=== PATIENT | female | born 1980 | race Hispanic/Latino ===

== ENCOUNTER 2019-06-16 20:47 | Inpatient (IN) | payer BC, SELFPAY ==
[2019-06-16] MEDS ORDERED: NA CHLORIDE 0.9% 100 ML IV ONE (21:16)
[2019-06-16] MEDS ORDERED: NA CHLORIDE 0.9% 2,000 ML ONE (21:16)
[2019-06-16] MEDS ORDERED: KETOROLAC 30 MG/ML INJ ONE (21:16)
[2019-06-16 21:28] LABS: Urine Blood 2+ (NEG); Urine Glucose 2+ (NEG); Urine Protein 3+ (NEG); Urine pH 5.5 (5.0-7.0)
[2019-06-16 21:42] LABS: Absolute Lymphocytes (CBC) 2.9 K/uL (0.7-4.9); Basophils % 0.8 % (0-1.3); Hematocrit 42.4 % (36.0-45.0); Lymphocytes % 18.7 % (15.3-44.8); MPV 9.6 fL (7.6-11.3); RBC Red Blood Cell Count 4.75 M/uL (3.86-4.86)
[2019-06-16] MEDS ORDERED: CEFTRIAXONE/SWI 1gm 1 GM/10 ML SYR ONE (22:15)
[2019-06-16 22:23] LABS: ALT/SGPT 28 U/L (12-78); AST/SGOT 14 U/L (15-37); Albumin 3.1 g/dL (3.4-5.0); Alkaline Phosphatase 105 U/L (45-117); BUN Blood Urea Nitrogen 9 mg/dL (7-18); Bicarbonate 21 mmol/L (21-32); Bilirubin Total 0.7 mg/dL (0.2-1.0); Glucose Level 282 mg/dL (74-106); Potassium 3.9 mmol/L (3.5-5.1); Protein, Total 7.5 g/dL (6.4-8.2); Sodium Level 139 mmol/L (136-145)
--- NOTE | 2019-06-17 00:08 | EDPHYS ---
Physician Documentation [facility] Name: Yael Lipscomb Age: 39 yrs Sex: Female : 1980 Arrival Date: 06/16/2019 Time: 20:49 Bed 5 Private MD: ED Physician Grabiel Santizo HPI: 06/16 21:05 This 39 yrs old Female presents to ER via Unassigned with complaints of ps1 Abdominal Pain. 21:05 Pt is IDDM, 70/30 poor control, BS >300. Chron's on Humira. Presenting with LLQ ps1 abdominal pain. States over last couple of days had lower abdominal pain L>R. Had urinary frequency with mild dysuria. Started taking amoxicillin (left over). No fever. Had chills. Presented tachycardic. Hx of BTL. . 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 - Social history:: Smoking status: Patient/guardian denies using tobacco, Patient/guardian denies using alcohol, street drugs. - Ebola Screening: : Patient negative for fever greater than or equal to 101.5 degrees Fahrenheit, and additional compatible Ebola Virus Disease symptoms Patient denies exposure to infectious person Patient denies travel to an Ebola-affected area in the 21 days before illness onset. ROS: 21:05 Eyes: Negative for injury, pain, redness, and discharge, ENT: Negative for injury, ps1 pain, and discharge, Cardiovascular: Negative for chest pain, palpitations, and edema, Respiratory: Negative for shortness of breath, cough, wheezing, and pleuritic chest pain, MS/Extremity: Negative for injury and deformity, Skin: Negative for injury, rash, and discoloration, Neuro: Negative for headache, weakness, numbness, tingling, and seizure. 21:05 Abdomen/GI: Positive for abdominal pain. Exam: 21:11 Constitutional: This is a well developed, well nourished patient who is awake, alert, ps1 and in no acute distress. Head/Face: Normocephalic, atraumatic. Eyes: Pupils equal round and reactive to light, extra-ocular motions intact. Lids and lashes normal. Conjunctiva and sclera are non-icteric and not injected. Chest/axilla: Normal chest wall appearance and motion. Nontender with no deformity. No lesions are appreciated. Respiratory: Lungs have equal breath sounds bilaterally, clear to auscultation and percussion. No rales, rhonchi or wheezes noted. No increased work of breathing, no retractions or nasal flaring. MS/ Extremity: Pulses equal, no cyanosis. Neurovascular intact. Full, normal range of motion. Neuro: Awake and alert, GCS 15, oriented to person, place, time, and situation. Cranial nerves II-XII grossly intact. Sensory grossly intact. Psych: Awake, alert, with orientation to person, place and time. Behavior, mood, and affect are within normal limits. 21:11 Cardiovascular: Rate: tachycardic, Rhythm: regular. 21:11 Abdomen/GI: Inspection: abdomen appears normal, Bowel sounds: normal, Palpation: moderate abdominal tenderness, in the suprapubic area and left lower quadrant. Vital Signs: 21:08 BP 178 / 99; Pulse 125; Resp 20; Temp 99; Pulse Ox 100% ; Weight 68.95 kg; Height 5 ft. rr5 1 in. (154.94 cm); Pain 10/10; 22:15 BP 165 / 72; Pulse 115; Resp 19; Pulse Ox 100% ; rr5 22:15 Pain 0/10; rr5 22:48 BP 154 / 73; Pulse 104; Resp 19; Pulse Ox 98% ; Pain 0/10; rr5 06/17 00:00 BP 146 / 85; Pulse 99; Resp 19; Pulse Ox 98% ; rr5 01:00 BP 143 / 81; Pulse 94; Resp 17; Temp 98.5; Pulse Ox 100% ; Pain 0/10; rr5 06/16 21:08 Body Mass Index 28.72 (68.95 kg, 154.94 cm) rr5 MDM: 06/16 22:01 Patient medically screened. [facility] 06/16 21:05 Order name: CBC with Diff; Complete Time: 22:02 ps1 06/16 21:05 Order name: CMP; Complete Time: 22:48 ps1 06/16 21:05 Order name: Lactate; Complete Time: 22:08 ps1 06/16 21:05 Order name: Blood Culture Adult (2) ps1 06/16 21:25 Order name: Urine Dipstick--Ancillary (enter results); Complete Time: 22:02 mw2 06/16 21:43 Order name: Urine Microscopic Only rr5 06/16 21:05 Order name: CT Abd/Pelvis - IV Contrast Only ps1 06/17 00:30 Order name: Comprehensive Metabolic Panel EDNM 06/17 00:30 Order name: Comprehensive Metabolic Panel EDNM 06/17 00:32 Order name: CONS Pharmacy Consult EDNM 06/17 00:32 Order name: Regular EDMS 06/16 21:05 Order name: Urine Dipstick-Ancillary (obtain specimen); Complete Time: 21:25 ps1 Administered Medications: 21:30 Drug: NS 0.9% (30 ml/kg) 30 ml/kg Route: IV; Rate: bolus; Site: right forearm; rr5 06/17 00:00 Follow up: Response: No adverse reaction; IV Status: Completed infusion; IV Intake: rr5 2100ml 06/16 21:31 Drug: TORadol - Ketorolac 15 mg Route: IVP; Site: right forearm; rr5 22:30 Follow up: Response: No adverse reaction rr5 22:28 Drug: Rocephin - (cefTRIAXone) 1 grams Route: IVPB; Infused Over: 30 mins; Site: right rr5 forearm; Disposition: 06/17/19 00:06 Hospitalization ordered by Rodney Read for Inpatient Admission. Preliminary diagnosis are Complicated UTI, Sepsis. - Bed requested for Telemetry/MedSurg (Inpatient). - Status is Inpatient Admission. rr5 - Condition is Stable. - Problem is new. - Symptoms have improved. UTI on Admission? Yes Signatures: Dispatcher [employer] EDNM Kathryn Luna RN RN aa1 Grabiel Santizo MD MD ps1 Yvan Moser RN RN rr5 Corrections: (The following items were deleted from the chart) 06/17 00:46 00:06 Hospitalization Ordered by Rodney Read MD for Inpatient Admission. Preliminary aa1 diagnosis is Complicated UTI; Sepsis. Bed requested for Telemetry/MedSurg (Inpatient). Status is Inpatient Admission. Condition is Stable. Problem is new. Symptoms have improved. UTI on Admission? Yes. ps1 01:35 00:46 06/17/2019 00:06 Hospitalization Ordered by Rodney Read MD for Inpatient rr5 Admission. Preliminary diagnosis is Complicated UTI; Sepsis. Bed requested for Telemetry/MedSurg (Inpatient). Status is Inpatient Admission. Condition is Stable. Problem is new. Symptoms have improved. UTI on Admission? Yes. aa1
--- NOTE | 2019-06-17 00:08 | ER ---
Nurse's Notes [facility] Name: Yael Lipscomb Age: 39 yrs Sex: Female : 1980 Arrival Date: 06/16/2019 Time: 20:49 Bed 5 Private MD: Diagnosis: Complicated UTI;Sepsis Presentation: 06/16 21:05 Presenting complaint: Patient states: i have this abdominal pain started few days ago rr5 more on the left pelvic area. I noticed also when i pee at the end it started to hurt. Transition of care: patient was not received from another setting of care. Onset of symptoms was May 2019. Risk Assessment: Do you want to hurt yourself or someone else? Patient reports no desire to harm self or others. Care prior to arrival: Medication(s) given: unprescribed amoxicillin taken yesterday I'm thinking it looks UTI as stated by the patient. 21:05 Method Of Arrival: Wheelchair rr5 21:05 Acuity: MATT 3 rr5 21:05 Initial Sepsis Screen: Does the patient meet any 2 criteria? RR > 20 per min. HR > 90 rr5 bpm. Yes Does the patient have a suspected source of infection? 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 - Social history:: Smoking status: Patient/guardian denies using tobacco, Patient/guardian denies using alcohol, street drugs. - Ebola Screening: : Patient negative for fever greater than or equal to 101.5 degrees Fahrenheit, and additional compatible Ebola Virus Disease symptoms Patient denies exposure to infectious person Patient denies travel to an Ebola-affected area in the 21 days before illness onset. Screenin:35 Abuse screen: Denies threats or abuse. Denies injuries from another. Nutritional rr5 screening: No deficits noted. Tuberculosis screening: No symptoms or risk factors identified. Fall Risk IV access (20 points). Total [place] Fall Scale indicates No Risk (0-24 pts). Assessment: 21:30 General: Appears in no apparent distress. uncomfortable, Behavior is calm, cooperative, rr5 appropriate for age. 21:30 Pain: Complains of pain in abdomen Pain radiates to left flank Pain currently is 10 out rr5 of 10 on a pain scale. Quality of pain is described as aching, Pain began gradually. Neuro: Level of Consciousness is awake, alert, obeys commands, Oriented to person, place, time, situation, Appropriate for age. Cardiovascular: Capillary refill < 3 seconds Patient's skin is warm and dry. Respiratory: Airway is patent Respiratory effort is even, unlabored, Respiratory pattern is regular, symmetrical. GI: Abdomen is round Bowel sounds present X 4 quads. Abd is soft and non tender Reports lower abdominal pain. : Reports pain with urination. EENT: No signs and/or symptoms were reported regarding the EENT system. Derm: Skin is intact, Skin temperature is warm. Musculoskeletal: Circulation, motion, and sensation intact. Capillary refill < 3 seconds. 22:26 Reassessment: Patient appears in no apparent distress at this time. Patient is alert, rr5 oriented x 3, equal unlabored respirations, skin warm/dry/pink. awaiting for results. Patient denies pain at this time. Patient states feeling better. Patient states symptoms have improved. Pain: Pain currently is 0 out of 10 on a pain scale. 23:30 Reassessment: Patient appears in no apparent distress at this time. Patient is alert, rr5 oriented x 3, equal unlabored respirations, skin warm/dry/pink. awaiting for CT result. 06/17 00:50 Reassessment: Patient appears in no apparent distress at this time. Patient is alert, rr5 oriented x 3, equal unlabored respirations, skin warm/dry/pink. advised and agreed for the plan of admission.denies any pain. no complaints made. Patient states feeling better. Patient states symptoms have improved. 01:15 Reassessment: Patient appears in no apparent distress at this time. Patient and/or rr5 family updated on plan of care and expected duration. Pain level reassessed. Patient is alert, oriented x 3, equal unlabored respirations, skin warm/dry/pink. 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 Vital Signs: 06/16 21:08 BP 178 / 99; Pulse 125; Resp 20; Temp 99; Pulse Ox 100% ; Weight 68.95 kg; Height 5 ft. rr5 1 in. (154.94 cm); Pain 10/10; 22:15 BP 165 / 72; Pulse 115; Resp 19; Pulse Ox 100% ; rr5 22:15 Pain 0/10; rr5 22:48 BP 154 / 73; Pulse 104; Resp 19; Pulse Ox 98% ; Pain 0/10; rr5 06/17 00:00 BP 146 / 85; Pulse 99; Resp 19; Pulse Ox 98% ; rr5 01:00 BP 143 / 81; Pulse 94; Resp 17; Temp 98.5; Pulse Ox 100% ; Pain 0/10; rr5 06/16 21:08 Body Mass Index 28.72 (68.95 kg, 154.94 cm) rr5 ED Course: 06/16 20:49 Patient arrived in ED. cf2 20:54 Yvan Moesr, SIMIN is Primary Nurse. rr5 20:56 Grabiel Santizo MD is Attending Physician. ps1 21:05 Arm band placed on left wrist. rr5 21:05 Patient has correct armband on for positive identification. Placed in gown. Bed in low rr5 position. Call light in reach. Side rails up X2. Pulse ox on. NIBP on. 21:08 Triage completed. rr5 21:10 Radiology exam delayed due to lab results not completed at this time. (BUN/Creatinine). mw3 21:30 Inserted saline lock: 20 gauge in right forearm, using aseptic technique. Blood rr5 collected. 21:30 First set of blood cultures drawn by me. rr5 21:55 Radiology exam delayed due to lab results not completed at this time. (BUN/Creatinine). kw1 22:37 CT completed. Patient tolerated procedure well. Patient moved back from CT. mw3 22:47 CT Abd/Pelvis - IV Contrast Only In Process Unspecified. EDMS 06/17 00:05 Grabiel Santizo MD is Hospitalizing Provider. ps1 00:05 Read, Mohammad, MD is Hospitalizing Provider. ps1 01:02 No provider procedures requiring assistance completed. Patient admitted, IV remains in rr5 place. intact, No redness/swelling at site. Administered Medications: 06/16 21:30 Drug: NS 0.9% (30 ml/kg) 30 ml/kg Route: IV; Rate: bolus; Site: right forearm; rr5 06/17 00:00 Follow up: Response: No adverse reaction; IV Status: Completed infusion; IV Intake: rr5 2100ml 06/16 21:31 Drug: TORadol - Ketorolac 15 mg Route: IVP; Site: right forearm; rr5 22:30 Follow up: Response: No adverse reaction rr5 22:28 Drug: Rocephin - (cefTRIAXone) 1 grams Route: IVPB; Infused Over: 30 mins; Site: right rr5 forearm; Intake: 06/17 00:00 IV: 2100ml; Total: 2100ml. rr5 Outcome: 00:06 Decision to Hospitalize by Provider. ps1 01:25 Admitted to Med/surg accompanied by nurse, via wheelchair, room 206, with chart, Report rr5 called to [facility] 01:25 Condition: stable rr5 01:25 Instructed on the need for admit. 01:35 Patient left the ED. rr5 Signatures: Dispatcher [employer] EDMS Grabiel Santizo MD MD ps1 Esperanza Singh kw1 Joslyn Mckeon mw3 Yvan Moser RN RN rr5 Kimberly Tovar cf2 Corrections: (The following items were deleted from the chart) 06/16 22: 21:30 Pain: Complains of pain in abdomen Pain does not radiate. Pain currently is 6 out rr5 of 10 on a pain scale. Quality of pain is described as aching, Pain began gradually, rr5 22:01 21:30 GI: Abdomen is round post incision at right upper,lower quadrant and umbilical rr5 area. wound is dry and intact no discharge noted. Bowel sounds present X 4 quads. Abd is soft and non tender rr5 22:02 21:30 Pain: Complains of pain in abdomen Pain does not radiate. Pain currently is 10 rr5 out of 10 on a pain scale. Quality of pain is described as aching, Pain began gradually, rr5 22:02 21:30 GI: Abdomen is round post incision at right upper,lower quadrant and umbilical rr5 area. wound is dry and intact no discharge noted. Bowel sounds present X 4 quads. Abd is soft and non tender Reports lower abdominal pain, rr5
[2019-06-17] MEDS ORDERED: ACETAMINOPHEN 500 MG TAB PO PRN (00:27)
[2019-06-17] MEDS ORDERED: TRAMADOL HCL 50 MG TAB PO PRN (00:30)
[2019-06-17] MEDS ORDERED: ONDANSETRON 4 MG/2 ML VIAL IV SCH (01:00)
[2019-06-17] MEDS ORDERED: ONDANSETRON 4 MG/2 ML VIAL IV PRN (01:39)
[2019-06-17] MEDS: NA CHLORIDE 0.9% 1,000 ML IV SCH ×3 (01:45→21:02)
[2019-06-17 02:59] VITALS: BMI 28.7
[2019-06-17] MEDS ORDERED: CEFTRIAXONE/SWI 1gm 1 GM/10 ML SYR ONE (04:48)
[2019-06-17 05:54] LABS: Urine Appearance CLOUDY; Urine Bilirubin NEGATIVE (NEG); Urine Blood 1+ (NEG); Urine Color YELLOW; Urine Glucose 3+ (NEG); Urine Protein 1+ (NEG); Urine Specific Gravity >=1.030 (1.005-1.030); Urine Urobilinogen 0.2 mg/dL (0.2-1.0)
[2019-06-17 05:57] LABS: Urine Microscopic Reflex ORDER UMIC
[2019-06-17] MEDS ORDERED: CEFTRIAXONE 1 GM/NS 50 ML 1 GM/50 ML BAG IV SCH (06:00)
[2019-06-17 06:08] LABS: Urine Bacteria <20 /HPF (<20); Urine Culture Reflex Order REFLEXED; Urine RBC <5 /HPF (NONE SEEN)
--- NOTE | 2019-06-17 08:06 | P.HP ---
Certification for Inpatient Patient admitted to: Inpatient With expected LOS: >2 Midnights Patient will require the following post-hospital care: None Practitioner: I am a practitioner with admitting privileges, knowledge of patient current condition, hospital course, and medical plan of care. Services: Services provided to patient in accordance with Admission requirements found in Title 42 Section 412.3 of the Code of Federal Regulations Patient History Date of Service: 06/17/19 Reason for admission: Pyelonephritis/ureteritis/cystitis History of Present Illness: Patient is a 39-year-old female who came into the hospital with fevers. Pt has been on immunosuppressants. She has history of Crohn's disease as well as type 2 diabetes. Patient has been having some abdominal pain. She denies any vaginal discharge. She has had dysuria. She came to the emergency room for evaluation. In the emergency room she was found have cystitis with possible pyelonephritis. She will be admitted to the hospital for further evaluation. She has infection with possible sepsis and a history of immunosuppression. She will need to be monitored closely. Allergies No Known Allergies Allergy (Verified 06/17/19 01:49) Home Medications: Adalimumab [Humira 40 MG/0.8 ML*] 0.8 ml IM SEECOM 06/17/19 Amlodipine [Norvasc*] 1 tab PO DAILY 06/17/19 Insulin 70/30 NPH/Reg Human [Novolin 70/30*] 20 units SQ BEDTIME 06/17/19 Insulin 70/30 NPH/Reg Human [Novolin 70/30*] 40 units SQ DAILY 06/17/19 Pioglitazone [Actos*] 1 tab PO BID 06/17/19 - Past Medical/Surgical History Has patient received pneumonia vaccine in the past: No Diabetic: Yes -: HYPERTENSION -: CROHN'S DISEASE -: IDDM -: INSOMNIA -: CHRONIC JOINT PAIN UPPER AND LOWER EXTREMITIES -: HIATAL HERNIA -: MOUTH ULCERS BECAUSE OF CROHN'S -: tubal ligation - Family History PARENTS Medical History: Hypertension, Diabetes - Social History Smoking Status: Never smoker Alcohol use: No CD- Drugs: Yes Caffeine use: Yes Place of Residence: Home Review of Systems 10-point ROS is otherwise unremarkable Physical Examination - Vital Signs Temperature: 98.3 F Blood Pressure: 126/60 Pulse: 93 Respirations: 15 Pulse Ox (%): 96 - Physical Exam General: Alert, In no apparent distress, Oriented x3 HEENT: Atraumatic, PERRLA, Mucous membr. moist/pink, EOMI, Sclerae nonicteric Neck: Supple, 2+ carotid pulse no bruit, No LAD, Without JVD or thyroid abnormality Respiratory: Clear to auscultation bilaterally, Normal air movement Cardiovascular: Regular rate/rhythm, Normal S1 S2, No murmurs Gastrointestinal: Normal bowel sounds, Non-distended, No rebound, No guarding, Tenderness Musculoskeletal: No clubbing, No swelling, No tenderness Integumentary: No rashes Neurological: Normal gait, Normal strength at 5/5 x4 extr, Normal tone, Sensation intact, Cranial nerves 3-12 intact, Abnormal gait, Abnormal speech, Abnormal strength Lymphatics: No axilla or inguinal lymphadenopathy - Studies Laboratory Data (last 24 hrs) 06/16/19 21:53: Sodium 139, Potassium 3.9, BUN 9, Creatinine 0.55, Glucose 282 H , Total Bilirubin 0.7, AST 14 L, ALT 28, Alkaline Phosphatase 105 06/16/19 21:30: WBC 15.7 H, Hgb 14.1, Hct 42.4, Plt Count 319 Assessment & Plan - Problems (Diagnosis) (1) Pyelonephritis Current Visit: Yes Status: Acute (2) Cystitis Current Visit: Yes Status: Acute (3) UTI (urinary tract infection) Current Visit: Yes Status: Acute (4) Immunosuppression Current Visit: Yes Status: Acute - Plan 1. Continue with IV hydration 2. Continue with IV antibiotics 3. Diet as tolerated; monitor labs closely 4. Monitor CBC, BMP, LFTs & lipase along with electrolytes. 5. GI and DVT prophylaxis Discharge Plan: Home Plan to discharge in: Greater than 2 days - Advance Directives Does patient have a Living Will: No Does patient have a Durable POA for Healthcare: No - Code Status/Comfort Care Code Status Assessed: Yes Code Status: Full Code Critical Care: No Time Spent Managing PTS Care (In Minutes): 40
[2019-06-17] MEDS: INSULIN 70/30 100 UNITS/ML SQ SCH (10:05)
[2019-06-17] MEDS: MORPHINE 2 MG/ML SYR IV PRN ×2 (10:20→17:39)
[2019-06-17 11:05] LABS: Absolute Lymphocytes (CBC) 3.4 K/uL (0.7-4.9); Basophils % 0.8 % (0-1.3); Hematocrit 34.8 % (36.0-45.0); Lymphocytes % 30.7 % (15.3-44.8); MPV 9.6 fL (7.6-11.3); RBC Red Blood Cell Count 3.93 M/uL (3.86-4.86)
[2019-06-17 11:20] LABS: BUN Blood Urea Nitrogen 9 mg/dL (7-18); Bicarbonate 25 mmol/L (21-32); Glucose Level 244 mg/dL (74-106); Phosphorus 2.3 mg/dL (2.5-4.9); Potassium 3.6 mmol/L (3.5-5.1); Sodium Level 139 mmol/L (136-145)
[2019-06-17] MEDS ORDERED: D50W 25 GM/50 ML SYRINGE IV PRN (13:47)
[2019-06-17] MEDS ORDERED: GLUCAGON 1 MG/VIAL IM PRN (13:47)
[2019-06-17] MEDS ORDERED: POTASSIUM CL SA 10 MEQ TAB PO ONE (14:36)
[2019-06-17] MEDS: POTASS/SODIUM PHOSPHATE 1 PKT POWD.PACK PO SCH ×3 (15:27→16:47)
[2019-06-17] MEDS: INSULIN -REGULAR HUMAN 50 UNIT/0.5 ML ML SQ SCH ×2 (16:47→21:03)
[2019-06-17] MEDS: CEFTRIAXONE/SWI 1gm 1 GM/10 ML SYR IV SCH (17:15)
--- NOTE | 2019-06-17 19:06 | PN ---
Date of Progress Note: 06/17/2019 Subjective: The patient seen and examined. Chart reviewed and case discussed with RN. Patient radha matias having some pain on her left flank and abdomen, however, overall states better. Medications: List reviewed. Physical Examination: Vital Signs: Temperature 98.4, heart rate 102, blood pressure 153/69, respirations 18, O2 sats 98% o n room air. General: Awake, alert, oriented x3. Mildly ill-appearing female. CV: S1, S2. Sinus tachycardia and peripheral pulses present. Respiratory: Moving air well bilaterally. No wheezing or stridor. No use of accessory muscles. Gastrointestinal: Abdomen is soft. Mild tenderness to palpation on the left side. No rebound or gu arding. The patient does have left flank tenderness. Extremities: No clubbing, cyanosis, or edema. Neurologic: Nonfocal. Laboratory Data: Sodium 139, potassium 3.6, chloride 107, CO2 of 25, BUN 9, creatinine 0.51, glucose 244, calcium 8.2, phosphorus 2.3, magnesium 2. WBC 11, H and H 11.7 and 34.8, platelets 293. Blood cultures pending. Urine culture is also pending. Assessment And Plan: A 39-year-old female with. 1.Acute pyelonephritis. We will continue with IV fluids. The patient is still having left flank te nderness. Continue with pain medications and IV antibiotics. Cultures are pending. 2.Immunosuppressed status secondary to being on biologics for her Crohn disease. 3.Essential hypertension, stable. 4.Diabetes mellitus type 2, insulin requiring, uncontrolled with hyperglycemia. We will start on sl iding scale insulin, continue 70/30. 5.Crohn disease, on Humira, stable. 6.Chronic joint pain. 7.Hypophosphatemia. We will replace and monitor. Plan: Follow up on urine cultures, likely discharge in the next 24 to 48 hours depending on clinical improvement, replace phosphorus, add sliding scale insulin. SA/MODL Voice ID: [id number] Report ID: [id number]
[2019-06-17 23:40] VITALS: O2SAT 95
[2019-06-18] MEDS: MORPHINE 2 MG/ML SYR IV PRN (03:09)
[2019-06-18] MEDS: CEFTRIAXONE/SWI 1gm 1 GM/10 ML SYR IV SCH (05:03)
[2019-06-18 06:05] LABS: Absolute Lymphocytes (CBC) 3.4 K/uL (0.7-4.9); Basophils % 0.9 % (0-1.3); Hematocrit 34.8 % (36.0-45.0); MPV 9.4 fL (7.6-11.3); RBC Red Blood Cell Count 3.95 M/uL (3.86-4.86)
[2019-06-18] MEDS: NA CHLORIDE 0.9% 1,000 ML IV SCH (06:26)
[2019-06-18 06:35] LABS: ALT/SGPT 23 U/L (12-78); AST/SGOT 15 U/L (15-37); Albumin 2.7 g/dL (3.4-5.0); Alkaline Phosphatase 96 U/L (45-117); BUN Blood Urea Nitrogen 7 mg/dL (7-18); Bicarbonate 26 mmol/L (21-32); Bilirubin Total 0.5 mg/dL (0.2-1.0); Glucose Level 169 mg/dL (74-106); Phosphorus 2.8 mg/dL (2.5-4.9); Potassium 3.7 mmol/L (3.5-5.1); Protein, Total 7.2 g/dL (6.4-8.2); Sodium Level 137 mmol/L (136-145)
[2019-06-18] MEDS: INSULIN -REGULAR HUMAN 50 UNIT/0.5 ML ML SQ SCH (08:15)
[2019-06-18] MEDS: INSULIN 70/30 100 UNITS/ML SQ SCH (08:16)
[2019-06-18] MEDS ORDERED: GLUCAGON 1 MG/VIAL IM PRN (08:21)
[2019-06-18] MEDS ORDERED: D50W 25 GM/50 ML SYRINGE IV PRN (08:21)
[2019-06-18] MEDS ORDERED: POTASSIUM CL SA 10 MEQ TAB PO ONE (09:00)
[2019-06-18] MEDS ORDERED: PIOGLITAZONE 15 MG TAB PO SCH (09:00)
[2019-06-18] MEDS ORDERED: AMLODIPINE 5 MG TAB PO SCH (09:00)
[2019-06-18 10:15] VITALS: BP 145/64; TEMP 97.5
[2019-06-18] MEDS ORDERED: INSULIN -REGULAR HUMAN 50 UNIT/0.5 ML ML SQ SCH (11:30)
--- NOTE | 2019-06-18 17:01 | RAD REPORT ---
EXAM DESCRIPTION: CT Abdomen and Pelvis With Intravenous Contrast CLINICAL HISTORY: The patient is 39 years old and is Female; LLQ abd pain. hx chrons TECHNIQUE: Axial computed tomography images of the abdomen and pelvis with intravenous contrast. S agittal and coronal reformatted images were created and reviewed. This CT exam was performed using one or more of the following dose reduction techniques: automated exposure control, adjustment of t he mA and/or kV according to patient size, and/or use of iterative reconstruction technique. COMPARISON: No relevant prior studies available. FINDINGS: LUNG BASES: Unremarkable. No mass. No consolidation. ABDOMEN: LIVER: There is a diffuse decrease in hepatic parenchymal density, consistent with fatty infiltr ation. GALLBLADDER AND BILE DUCTS: No calcified stones. No ductal dilation. PANCREAS: No ductal dilation. No mass. SPLEEN: Unremarkable. ADRENALS: Unremarkable. No mass. KIDNEYS AND URETERS: Extensive periureteral stranding on the left is present. The kidneys enhanc e symmetrically. No hydronephrosis or hydroureter is noted. STOMACH AND BOWEL: The stomach is minimally fluid filled. The small bowel is relatively normal i n caliber. Stool is present throughout colon. There is no mucosal thickening or evidence of bowel obs truction. PELVIS: APPENDIX: The appendix is normal in caliber without surrounding inflammation. BLADDER: Bladder wall inflammatory stranding is noted. REPRODUCTIVE: Unremarkable as visualized. ABDOMEN and PELVIS: INTRAPERITONEAL SPACE: Unremarkable. No free air. No significant fluid collection. BONES/JOINTS: No acute fracture. SOFT TISSUES: The soft tissues are normal. VASCULATURE: Unremarkable. No abdominal aortic aneurysm. LYMPH NODES: Unremarkable. No enlarged lymph nodes. IMPRESSION: Findings suggestive of extensive left ureteritis and cystitis. Electronically signed by: Bessie Singh MD 06/16/2019 10:58 PM CDT Due to temporary technical issues with the PACS/Fluency reporting system, reports are being signed by the in house radiologist as a courtesy to ensure prompt reporting. The interpreting radiologist is shy kwon responsible for the content of the report.
--- NOTE | 2019-06-19 02:27 | DS ---
Date of Discharge: 06/18/2019 Admitting Diagnoses: 1.Acute pyelonephritis. 2.Immunosuppressed status. 3.Ulcerative colitis. 4.Essential hypertension. 5.Diabetes mellitus type 2, insulin requiring with hyperglycemia. Discharge Diagnoses: 1.Acute pyelonephritis, improving. 2.Immunosuppressed status. 3.History of Crohn disease, on immunosuppressant. 4.Essential hypertension. 5.Diabetes mellitus type 2, insulin requiring with hyperglycemia, uncontrolled. Hospital Course: Patient is a 39-year-old female, comes in with fever, chills, and dysuria. Patient also had some flank tenderness on the left. UA was positive. Patient was found to have pyelonephri tis. CT scan of the abdomen showed inflammation and extensive left ureteritis and cystitis. Patient was started on IV antibiotics. Cultures were obtained. Her urine culture did not show any growth. Blood cultures remained negative to date. Her blood glucose levels were not well controlled. She w as counseled regarding her diabetes. Patient's white blood cell count trended down and resolved, nor malized. Patient was feeling better. Her pain had improved. Patient was then cleared for discharge . Her dysuria had improved. As her cultures were negative, she will be switched over to oral antibi otics. As she is immunosuppressive, will require longer period of time for treatment duration. She needs to establish care with a primary care physician in 2 to 3 days. Monitor her blood glucose luz leal. Return to ER for worsening condition. Diet: Diabetic. Activity: As tolerated. Physical Examination: General: Awake, alert, and oriented x3, not in any acute distress. CV: S1, S2. No murmurs. Respiratory: Moving air well bilaterally. Abdomen: Soft, nontender, nondistended. Positive bowel sounds. Extremities: No clubbing, cyanosis, or edema. Neurologic: Nonfocal. Time Spent: Total time spent discharging the patient was 33 minutes. /PRADIP Voice ID: [id number] Report ID: [id number]
== END 2019-06-18 11:05 | disposition home or self-care (01) | DRG 690 ==
LOC: ER 20:47 → ERHOLD 06-17 00:27 → 2ND 06-17 01:15
PROVIDERS: ADMIT Hospitalist; ATTEND Hospitalist
DX: N10 Acute pyelonephritis (principal); K50.90 Crohn's disease, unspecified, without complications; N28.89 Other specified disorders of kidney and ureter; N30.90 Cystitis, unspecified without hematuria; Z79.899 Other long term (current) drug therapy; I10 Essential (primary) hypertension; E11.65 Type 2 diabetes mellitus with hyperglycemia
CPT/HCPCS: 36415; 74177; 80048; 80053; 81003; 81015; 82962; 83605; 83735; 84100; 85025; 87040; 87086; 87088; 96361; 96365; 96366; 96374; 96375; 99285; J0696; J2270; J2405; J7030; Q9967

== ENCOUNTER 2023-08-13 01:13 | Emergency (ER) | payer SELFPAY ==
--- NOTE | 2023-08-13 01:47 | EDPHYS ---
Physician Documentation [facility] Name: Yael Lipscomb Age: 43 yrs Sex: Female : 1980 Arrival Date: 08/13/2023 Time: 01:13 Bed 14 Private MD: ED Physician Hebert Baldwin HPI: 08/13 01:48 This 43 yrs old Female presents to ER via Unassigned with complaints of Eye kb Swelling, Eye Pain. 01:48 Patient is a 43-year-old female who presents for swelling, redness and discharge from kb left eye that started this morning. States she woke up with the swelling to her eyelids that was itchy. As the day progressed she started having redness to her eye and having yellow discharge. States it has been getting worse throughout this evening. Historical: - Allergies: 01:50 No Known Allergies; bp - Home Meds: 01:50 pioglitazone Oral [Active]; amlodipine 5 mg oral tablet 1 tab daily [Active]; bp - PMHx: 01:50 Crohn's; Diabetes - IDDM; Hypertension; bp - Immunization history:: Adult Immunizations up to date. - Social history:: Smoking status: Patient denies any tobacco usage or history of. ROS: 01:48 Constitutional: Negative for fever, chills, and weight loss, kb 01:48 Eyes: Positive for discharge, pain, redness, swelling, of the left eye, 01:48 All other systems are negative, Exam: 01:49 Constitutional: This is a well developed, well nourished patient who is awake, alert, kb and in no acute distress. Head/Face: Normocephalic, atraumatic. ENT: Moist Mucous membranes Cardiovascular: Regular rate Respiratory: Respirations even and unlabored. No increased work of breathing. Talking in full sentences Skin: Warm, dry with normal turgor. Normal color. MS/ Extremity: Pulses equal, no cyanosis. Neurovascular intact. Full, normal range of motion. Neuro: Awake and alert, GCS 15, oriented to person, place, time, and situation. Moves all extremities. Normal gait. 01:49 Eyes: Periorbital structures: appear normal, Pupils: equal, round, and reactive to light and accomodation, Extraocular movements: intact throughout, Conjunctiva: exudate, in the left eye, injected, in the left eye, Lids and lashes: edema, of the left eye, stye, on the left lid, Vital Signs: 01:49 BP 186 / 87; Pulse 82; Resp 16; Temp 97.8; Pulse Ox 97% ; Weight 65.77 kg; Height 5 ft. bp 2 in. ; 01:49 Body Mass Index 26.52 (65.77 kg, 157.48 cm) bp MDM: 01:24 Patient medically screened. kb 01:49 Differential diagnosis: Corneal abrasion of Corneal ulcer of Foreign body in [facility]. kb Data reviewed: vital signs, nurses notes. Counseling: I had a detailed discussion with the patient and/or guardian regarding the historical points, exam findings, and any diagnostic results supporting the discharge/admit diagnosis, the need for outpatient follow up, an opthalmologist, to return to the emergency department if symptoms worsen or persist or if there are any questions or concerns that arise at home. Administered Medications: No medications were administered Disposition: 07:02 Co-signature as Attending Physician, Hebert Baldwin MD I agree with the assessment sp4 and plan of care. I reviewed the patient's care provided by the Advanced Practice Provider and agree with the diagnosis and treatment plan. Disposition Summary: 08/13/23 01:46 Discharge Ordered Notes: Location: Home kb Condition: Stable kb Diagnosis - Other conjunctivitis kb Followup: kb - With: Emergency Department - When: As needed - Reason: Worsening of condition Followup: kb - With: Private Physician - When: 2 - 3 days - Reason: Recheck today's complaints, Continuance of care, Re-evaluation by your physician Discharge Instructions: - Discharge Summary Sheet kb - Bacterial Conjunctivitis, Adult, [id number] kb Forms: - Medication Reconciliation Form kb - Thank You Letter kb - Antibiotic Education kb - Prescription Opioid Use kb - Patient Portal Instructions kb - Leadership Thank You Letter kb Prescriptions: - Vigamox 0.5 % Ophthalmic Drops - instill 1 drop OPHTHALMIC route every 8 hours for 7 days; 5 milliliter; kb Refills: 0, Product Selection Permitted - sulfamethoxazole-trimethoprim 200-40 mg/5 mL Oral suspension - take 20 milliliter ORAL route every 12 hours for 10 days; 400 milliliter; kb Refills: 0, Product Selection Permitted Signatures: Viky Kruger FNP-C FNP-Ckb Chico Waldrop, RN RN bp Hebert Baldwin MD MD sp4
--- NOTE | 2023-08-13 01:59 | ER ---
Nurse's Notes [facility] Name: Yael Lipscomb Age: 43 yrs Sex: Female : 1980 Arrival Date: 08/13/2023 Time: 01:13 Bed 14 Private MD: Diagnosis: Other conjunctivitis Presentation: 08/13 01:49 Chief complaint: Patient states: LEFT EYE DISCHARGE AND CHICO-ORBITAL EDEMA SINCE bp WAKING. Coronavirus screen: At this time, the client does not indicate any symptoms associated with coronavirus-19. Ebola Screen: No symptoms or risks identified at this time. Mechanism of Injury: No Mechanism of Injury. The patient denies any loss of vision. Initial Sepsis Screen: Does the patient meet any 2 criteria? No. Patient's initial sepsis screen is negative. Does the patient have a suspected source of infection? No. Patient's initial sepsis screen is negative. Risk Assessment: Do you want to hurt yourself or someone else? Patient reports no desire to harm self or others. Onset of symptoms was August 13, 2023. 01:49 Method Of Arrival: Ambulatory bp 01:49 Acuity: MATT 4 bp Triage Assessment: 01:50 General: Appears in no apparent distress. Behavior is calm, cooperative. Pain: bp Complains of pain in left eye. EENT: Eyes with exudate noted from left eye. Historical: - Allergies: 01:50 No Known Allergies; bp - Home Meds: 01:50 pioglitazone Oral [Active]; amlodipine 5 mg oral tablet 1 tab daily [Active]; bp - PMHx: 01:50 Crohn's; Diabetes - IDDM; Hypertension; bp - Immunization history:: Adult Immunizations up to date. - Social history:: Smoking status: Patient denies any tobacco usage or history of. Screenin:52 [facility] ED Fall Risk Assessment (Adult) History of falling in the last 3 months, bp including since admission No falls in past 3 months (0 pts). Abuse screen: Denies threats or abuse. Denies injuries from another. Nutritional screening: No deficits noted. Tuberculosis screening: No symptoms or risk factors identified. Assessment: 01:52 General: SEE TRIAGE NOTE. bp Vital Signs: 01:49 BP 186 / 87; Pulse 82; Resp 16; Temp 97.8; Pulse Ox 97% ; Weight 65.77 kg; Height 5 ft. bp 2 in. ; 01:49 Body Mass Index 26.52 (65.77 kg, 157.48 cm) bp ED Course: 01:16 Patient arrived in ED. gm2 01:23 Viky Kruger FNP-C is [facility]. kb 01:23 Hebert Balwdin MD is Attending Physician. kb 01:33 Chico Waldrop, RN is Primary Nurse. bp 01:50 Triage completed. bp 01:50 Arm band placed on. bp 01:52 Patient has correct armband on for positive identification. Bed in low position. Call bp light in reach. Adult w/ patient. 01:52 No provider procedures requiring assistance completed. Patient did not have IV access bp during this emergency room visit. Administered Medications: No medications were administered Medication: 01:52 VIS not applicable for this client. bp Outcome: 01:46 Discharge ordered by . kb 01:52 Discharged to home ambulatory, with family, bp 01:52 Condition: stable 01:52 Discharge instructions given to patient, Instructed on discharge instructions, follow up and referral plans. medication usage, Demonstrated understanding of instructions, follow-up care, medications, Prescriptions given X 2, 01:59 Patient left the ED. bp Signatures: Viky Kruger FNP-C FNP-Ckb Peltier, Brian, RN RN Mary Perez gm2
[2023-08-13 02:11] VITALS: BP 186/87; TEMP 97.8; O2SAT 97
== END 2023-08-13 01:59 | disposition home or self-care (01) ==
LOC: ER 01:13
DX: H10.89 Other conjunctivitis (principal)
CPT/HCPCS: 99283

== ENCOUNTER 2024-01-27 12:08 | Emergency (ER) | payer SELFPAY ==
[2024-01-27] MEDS ORDERED: ONDANSETRON 4 MG (ODT) TAB ONE (12:53)
[2024-01-27] MEDS ORDERED: LIDOCAINE VISCOUS 2% 10ML ORAL SOLN ONE (12:53)
[2024-01-27] MEDS ORDERED: GLUCAGON 1 MG/VIAL ONE (12:54)
[2024-01-27] MEDS ORDERED: ACETAMINOPHEN 500 MG TAB ONE (14:00)
--- NOTE | 2024-01-27 15:03 | EDPHYS ---
Physician Documentation [facility] Name: Yael Lipscomb Age: 43 yrs Sex: Female : 1980 Arrival Date: 01/27/2024 Time: 12:08 Bed 14 Private MD: ED Physician Andrés Hawkins HPI: 01/26 12:35 This 43 yrs old Female presents to ER via Ambulatory with complaints of ec2 Difficulty Swallowing. 12:35 Patient arrives today for evaluation of pain with swallowing. Patient with history of ec2 odynophagia, patient had been taking her prednisone and subsequently felt the pill got lodged. Episode occurred last night. Patient reports some general issues swallowing. States that she took 5 mg prednisone.. ANALYZER SALES: 13:01 LMP N/A - , Not mb9 Historical: - Allergies: 12:21 No Known Allergies; hb - PMHx: 12:21 Crohn's; Diabetes - IDDM; Hypertension; hb - Immunization history:: Adult Immunizations up to date. - Infectious Disease History:: Denies. - Social history:: Smoking status: Patient denies any tobacco usage or history of. ROS: 12:36 Constitutional: as per hpi ec2 Exam: 12:36 Constitutional: GEN: NAD Head: atraumatic Eyes: EOMI Ears: External ears are normal. ec2 Mouth: No stridor, no issues with secretions. CV: regular rate LUNGS: no respiratory distress ABD: non-distended SKIN: no evidence of rashes MSK: no evidence of trauma NEURO: moves all extremities equally Vital Signs: 12:20 BP 194 / 97; Pulse 75; Resp 17; Temp 97.6; Pulse Ox 100% on R/A; Pain 7/10; ll1 13:19 BP 167 / 76; Pulse 73; Resp 16; Pulse Ox 99% on R/A; mb9 14:59 BP 122 / 95; Pulse 70; Resp 18; Pulse Ox 99% on R/A; mb9 12:20 Pain Scale: Adult ll1 MDM: 12:23 Patient medically screened. ec2 12:36 Data reviewed: vital signs. ED course: Patient arrives today for evaluation of a globus ec2 sensation. Examination remarkable for well-appearing nontoxic individual who is managing secretions well. Will give the patient glucagon for this globus sensation, will give the patient Zofran as well for the nausea. Will also attempt to give the patient viscous lidocaine for the discomfort.. Administered Medications: 12:59 Drug: Ondansetron Oral Disintegrating Tablet Oral Disintegrating Tablet 4 mg PO once mb9 Route: PO; 13:26 Follow up: Response: No adverse reaction mb9 12:59 Drug: Viscous Lidocaine Mucous Membrane Liquid (4 %) 5 ml Mucous Membrane once Route: mb9 Mucous Membrane; 13:26 Follow up: Response: No adverse reaction mb9 13:00 Drug: GlucaGen IM 2 mg IM once Route: IM; Site: left deltoid; mb9 13:26 Follow up: Response: No adverse reaction mb9 14:04 Drug: Acetaminophen PO 1000 mg PO once Route: PO; mb9 15:00 Follow up: Response: No adverse reaction mb9 Disposition Summary: 01/27/24 15:02 Discharge Ordered Notes: Location: Home ec2 Condition: Stable ec2 Diagnosis - Pill Esophagitis ec2 - Odynophagia ec2 Followup: ec2 - With: Private Physician - When: - Reason: Re-evaluation by your physician Discharge Instructions: - Discharge Summary Sheet ec2 Forms: - Medication Reconciliation Form ec2 - Antibiotic Education ec2 - Prescription Opioid Use ec2 - Patient Portal Instructions ec2 - Leadership Thank You Letter ec2 Prescriptions: - Protonix 40 mg Oral Tablet - take 1 tablet ORAL route once daily; 30 tablet; Refills: 0, Product Selection ec2 Permitted Signatures: Vickie Stevenson RN RN China Nair RN RN mb9 Andrés Hawkins MD MD ec2
--- NOTE | 2024-01-27 15:03 | ER ---
Nurse's Notes [facility] Name: Yael Lipscomb Age: 43 yrs Sex: Female : 1980 Arrival Date: 01/27/2024 Time: 12:08 Bed 14 Private MD: Diagnosis: Pill Esophagitis;Odynophagia Presentation: 01/26 12:20 Chief complaint: Patient states: Trouble swallowing food and water for 1 year, worse hb for the past 4 weeks. Coronavirus screen: Client denies travel out of the [place] in the last 14 days. At this time, the client does not indicate any symptoms associated with coronavirus-19. Ebola Screen: Patient denies travel to an Ebola-affected area in the 21 days before illness onset. Initial Sepsis Screen: Does the patient meet any 2 criteria? No. Patient's initial sepsis screen is negative. Does the patient have a suspected source of infection? No. Patient's initial sepsis screen is negative. Risk Assessment: Do you want to hurt yourself or someone else? Patient reports no desire to harm self or others. Onset of symptoms was December 28, 2023. 12:20 Method Of Arrival: Ambulatory hb 12:20 Acuity: MATT 3 hb Triage Assessment: 12:20 General: Appears uncomfortable, Behavior is calm, cooperative, appropriate for age. ll1 Pain: Complains of pain in chest Quality of pain is described as aching. EENT: Reports painful swallowing foods and drinks. Cardiovascular: Reports chest pain. [employer] TENDER: 13:01 LMP N/A - , Not mb9 Historical: - Allergies: 12:21 No Known Allergies; hb - PMHx: 12:21 Crohn's; Diabetes - IDDM; Hypertension; hb - Immunization history:: Adult Immunizations up to date. - Infectious Disease History:: Denies. - Social history:: Smoking status: Patient denies any tobacco usage or history of. Screenin:00 [facility] ED Fall Risk Assessment (Adult) History of falling in the last 3 months, mb9 including since admission No falls in past 3 months (0 pts) Confusion or Disorientation No (0 pts) Intoxicated or Sedated No (0 pts) Impaired Gait No (0 pts) Mobility Assist Device Used No (0 pt) Altered Elimination No (0 pt) Score/Fall Risk Level 0 - 2 = Low Risk Oriented to surroundings, Maintained a safe environment, Educated pt \T\ family on fall prevention, incl call for assistance when getting out of bed. Abuse screen: Denies threats or abuse. Nutritional screening: No deficits noted. Tuberculosis screening: No symptoms or risk factors identified. Assessment: 13:00 General: Appears in no apparent distress. Behavior is calm, cooperative. Pain: Denies mb9 pain. Neuro: Ambrosio Agitation-Sedation Scale (RASS): 0 - Alert and Calm Level of Consciousness is awake, alert, obeys commands, Oriented to person, place, time, situation, Appropriate for age. Cardiovascular: Patient's skin is warm and dry. Respiratory: Airway is patent Respiratory effort is even, unlabored, Respiratory pattern is regular, symmetrical, Breath sounds are clear bilaterally. GI: Reports nausea. : No signs and/or symptoms were reported regarding the genitourinary system. EENT: Oral mucosa is moist. Throat is clear. Derm: Skin is pink, warm \T\ dry. Musculoskeletal: Range of motion: intact in all extremities. 14:06 Reassessment: Patient appears in no apparent distress at this time. Patient is alert, mb9 oriented x 3, equal unlabored respirations, skin warm/dry/pink. Patient states feeling better. Patient states symptoms have improved. Vital Signs: 12:20 BP 194 / 97; Pulse 75; Resp 17; Temp 97.6; Pulse Ox 100% on R/A; Pain 7/10; ll1 13:19 BP 167 / 76; Pulse 73; Resp 16; Pulse Ox 99% on R/A; mb9 14:59 BP 122 / 95; Pulse 70; Resp 18; Pulse Ox 99% on R/A; mb9 12:20 Pain Scale: Adult ll1 ED Course: 12:13 Patient arrived in ED. ts1 12:13 Andrés Hawkins MD is Attending Physician. ec2 12:21 Triage completed. hb 12:21 Arm band placed on. hb 12:46 China Nair, SIMIN is Primary Nurse. mb9 13:00 Placed in gown. Bed in low position. Call light in reach. Side rails up X 1. Adult w/ mb9 patient. Provided Education on: press call light if needing anything. Client placed on continuous cardiac and pulse oximetry monitoring. NIBP monitoring applied. 13:01 No provider procedures requiring assistance completed. mb9 15:00 Patient did not have IV access during this emergency room visit. mb9 Administered Medications: 12:59 Drug: Ondansetron Oral Disintegrating Tablet Oral Disintegrating Tablet 4 mg PO once mb9 Route: PO; 13:26 Follow up: Response: No adverse reaction mb9 12:59 Drug: Viscous Lidocaine Mucous Membrane Liquid (4 %) 5 ml Mucous Membrane once Route: mb9 Mucous Membrane; 13:26 Follow up: Response: No adverse reaction mb9 13:00 Drug: GlucaGen IM 2 mg IM once Route: IM; Site: left deltoid; mb9 13:26 Follow up: Response: No adverse reaction mb9 14:04 Drug: Acetaminophen PO 1000 mg PO once Route: PO; mb9 15:00 Follow up: Response: No adverse reaction mb9 Medication: 13:01 VIS not applicable for this client. mb9 Outcome: 15:02 Discharge ordered by . ec2 15:14 Discharged to home ambulatory, mb9 15:14 Condition: stable 15:14 Discharge instructions given to patient, Instructed on discharge instructions, follow up and referral plans. Demonstrated understanding of instructions, follow-up care, medications, Prescriptions given X 1, 15:14 Patient left the ED. mb9 Signatures: Vickie Stevenson RN RN hb Lewis, Lynsay, RN RN ll1 China Nair RN RN mb9 Saira Sparrow PAS PAS ts1 Andrés Hawkins MD MD ec2 Corrections: (The following items were deleted from the chart) 12:23 12:20 BP 194 / 97; Pulse 75bpm; Resp 17bpm; Pulse Ox 100% RA; Pain 7/10, Adult; hb ll1 13:20 13:19 Pulse 73bpm; Resp 16bpm; Pulse Ox 99% RA; mb9 mb9
[2024-01-27 15:20] VITALS: BP 122/95; TEMP 97.6; O2SAT 99
== END 2024-01-27 15:14 | disposition home or self-care (01) ==
LOC: ER 12:08
DX: K20.80 Other esophagitis without bleeding (principal); R13.10 Dysphagia, unspecified
CPT/HCPCS: 96372; 99284; J1610; Q0162

== ENCOUNTER 2024-10-17 17:44 | Emergency (ER) | payer BC ==
--- OUTSIDE RECORDS SUMMARY | 2024-10-17 17:48 | XMS REPORT | Continuity of Care Document ---
Author Name Unknown Address [address] [facility] [address] [place] [address] [facility] Address [address] [facility] [place] [address] Care Team Providers Care Printing Agent Name Role Phone Pcp, Patient Does Not Have A Primary Care Physic cahrles Doctor Unassigned, [facility] Attending Clinician U Lisset Toro MD Attending Clinician [phone] Doctor Unassigned, [facility] Attending Clinician U jasvir Mays RN, [place] rGeenfield Attending Clinician [phone] LIBERTAD FERRELL Attending Clinician Unavailable Libertad Stoddard Attending Clinician [phone] YUDELKA FLORES Attending Clinician Unavailable Trevin Hickman DO Attending Clinician [phone] Yudelka Flores MD Attending Clinician [phone] Bharath Mcclure MD Attending Clinician [phone] Israel Christianson MD Attending Clinician [phone] BHARATH MCCLURE Admitting Clinician Unavailable Problems Condition Name Condition Details Condition Category Status Onset Date Resolution Date Last Treatment Date Treating Clinician Comments Source Esophageal dysphagia Esophageal dysphagia Disease Active 01-27 00:00: 00 [facility] Allergies, Adverse Reactions, Alerts Allergy Name Allergy Type Status Severity Reaction(s) Onset Date Inactive Date Treating Clinician Comments Source NO KNOWN ALLERGIE S Drug Class Active [facility] Social History Social Habit Start Date Stop Date Quantity Comments Source [facility] function 2024-01-29 00:00:00 2024-01-29 00:00:00 [facility] Sex assigned at 1980 00:00:00 1980 00:00:00 [facility] Smoking Status Start Date Stop Date Source Never smoked tobacco [facility] Medications Ordered Medication Name Filled Medication Name Start Date Stop Date Current Medication? Ordering Clinician Indication Dosage Frequency Signature (SIG) Comments Components Source azaTHIOprin e 100 mg tablet 01-30 00:00: 00 Yes [id number] 100mg Take 1 tablet by mouth in the morning. [facility] adalimumab (HUMIRA SC) 01-29 14:59: 28 01-29 00:00 :00 No inject under the skin. [facility] cholecalcif lelo (vitamin D3) tablet 1,000 Units 01-29 14:00: 00 Yes 1000U 1,000 Units, Oral, DAILY, First dose on Mon01/30/24 at 0900, Until Discontinu ed, Routine [facility] amLODIPine 10 mg tablet 01-29 00:00: 00 Yes [id number] 10mg Take 1 tablet by mouth in the morning. [facility] insulin glargine (LANTUS U-100 INSULIN) 100 unit/mL injection 01-29 00:00: 00 Yes [id number] 34U inject 34 Units under the skin every 12 (twelve) hours. [facility] Potassium Bicarb-Citr ic Acid (EFFER-K) effervescen t tablet 20 mEq 01-28 18:15: 00 01-28 18:40 :00 No 20meq 20 mEq, Oral, ONCE, 1 dose, On Mon01/29/24 at 1315, Routine [facility] ketorolac (TORADOL) injection 15 mg 01-28 14:15: 00 01-28 16:35 :00 No 15mg 15 mg, Slow IV Push, ONCE, 1 dose, On Mon01/29/24 at 0915, Routine [facility] azaTHIOprin e (IMURAN) tablet 100 mg 01-28 14:00: 00 Yes 100mg 100 mg, Oral, DAILY, First dose on Mon01/29/24 at 0900, Until Discontinu ed, Routine [facility] enoxaparin (LOVENOX) injection 40 mg 01-28 14:00: 00 Yes 40mg 40 mg, Subcutaneo us, DAILY, First dose on Mon01/29/24 at 0900, Until Discontinu ed, [facility] chloride in water (KCL) 20 mEq/100 mL RTU IVPB 20 mEq 01-28 13:15: 00 01-28 17:30 :22 No 20meq 20 mEq, IV Piggyback, Q2H ES, 2 doses, First dose on Mon01/29/24 at 0815, Last dose on Mon01/29/24 at 1015, 100 mL [facility] pantoprazol e (PROTONIX) injection 40 mg 01-28 13:00: 00 Yes 40mg 40 mg, Slow IV Push, Q12H, First dose on Mon01/29/24 at 0800, Until Discontinu ed [facility] bisacodyL (DULCOLAX) suppository 10 mg 01-27 18:15: 00 01-27 19:04 :00 No 10mg 10 mg, Rectal, ONCE, 1 dose, On 01/28/24 at 1315, Routine [facility] amLODIPine (NORVASC) tablet 10 mg 01-27 14:00: 00 Yes 10mg 10 mg, Oral, DAILY, First dose on Mon01/28/24 at 0900, Until Discontinu ed, Routine [facility] Sliding Scale Insulin - Lispro (HumaLOG) 01-27 13:00: 00 Yes Subcutaneo us, TID MEALS+HS, First dose on Mon01/28/24 at 0800, Until Discontinu ed, Routine [facility] D5W-LR IV infusion 1,000 mL 01-27 08:45: 00 01-28 08:44 :00 No 1000mL at 125 mL/hr, IV Infusion, CONTINUOUS , Starting on 01/28/24 at 0345, Until 01/29/24 at 0344, Routine [facility] bisacodyL (DULCOLAX) suppository 10 mg 01-27 08:45: 00 01-27 14:33 :00 No 10mg 10 mg, Rectal, ONCE, 1 dose, On Hanna 01/28/24 at 0345, BETH [facility] glucagon (GLUCAGEN DIAGNOSTIC KIT) injection 1 mg 01-27 08:33: 10 Yes 1mg 1 mg, Intramuscu lar, PRN, Starting on Hanna 01/28/24 at 0333, Until Discontinu ed, BETH, Blood Glucose < or = 70 mg/dL and patient is NPO, unable to swallow or has mental changes. [facility] dextrose 50 % in water (D50W) injection 25 mL 01-27 08:33: 10 Yes 25mL 25 mL, Slow IV Push, PRN, Starting on Hanna 01/28/24 at 0333, Until Discontinu ed, BETH, Blood Glucose < or = 70 mg/dL and patient is NPO, unable to swallow or has mental status changes. [facility] NaCl 0.9% (NS) bolus infusion 500 mL 01-27 03:15: 00 01-27 03:40 :00 No 500mL at 999 mL/hr, 500 mL, IV Infusion, ONCE, 1 dose, On 01/27/24 at 2215, BETH [facility] Immunizations Ordered Immunization Name Filled Immunization Name Date Status Comments Source SARS-COV-2 COVID-19 PFIZER VACCINE Unknown Completed [facility] SARS-COV-2 COVID-19 PFIZER VACCINE Unknown Completed [facility] SARS-COV-2 COVID-19 PFIZER VACCINE Unknown Completed [facility] SARS-COV-2 COVID-19 PFIZER VACCINE Unknown Completed [facility] SARS-COV-2 COVID-19 PFIZER VACCINE Unknown Completed [facility] SARS-COV-2 COVID-19 PFIZER VACCINE Unknown Completed [facility] SARS-COV-2 COVID-19 PFIZER VACCINE Unknown Completed [facility] SARS-COV-2 COVID-19 PFIZER VACCINE Unknown Completed [facility] Vital Signs Vital Name Observation Time Observation Value Comments S ource Systolic blood pressure 2024-02-28 00:28:00 159 mm[Hg] [facility] Diastolic blood pressure 2024-02-28 00:28:00 85 mm[Hg] [facility] Heart rate 2024-02-28 00:28:00 76 /min [facility] Respiratory rate 2024-02-28 00:28:00 12 /min [facility] Oxygen saturation in Arterial blood by Pulse oximetry 2024-02-28 00:28:00 99 /min [facility] Body height 2024-02-27 20:01:00 157.5 cm [facility] Body temperature 2024-02-27 19:28:00 36.44 Yenifer [facility] Body weight 2024-02-27 19:28:00 65.772 kg [facility] BMI 2024-02-27 19:28:00 26.52 kg/m2 [facility] Systolic blood pressure 2024-01-30 16:35:00 148 mm[Hg] [facility] Diastolic blood pressure 2024-01-30 16:35:00 77 mm[Hg] [facility] Heart rate 2024-01-30 16:35:00 74 /min [facility] Body temperature 2024-01-30 16:35:00 35 Yenifer [facility] Respiratory rate 2024-01-30 16:35:00 18 /min [facility] Oxygen saturation in Arterial blood by Pulse oximetry 2024-01-30 16:35:00 96 /min [facility] Body height 2024-01-29 14:26:00 157.5 cm [facility] Body weight 2024-01-29 14:26:00 66.679 kg [facility] BMI 2024-01-29 14:26:00 26.89 kg/m2 [facility] Systolic blood pressure 2024-01-29 15:40:00 172 mm[Hg] [facility] Diastolic blood pressure 2024-01-29 15:40:00 85 mm[Hg] [facility] Heart rate 2024-01-29 15:40:00 73 /min [facility] Respiratory rate 2024-01-29 15:40:00 13 /min [facility] Oxygen saturation in Arterial blood by Pulse oximetry 2024-01-29 15:40:00 100 /min [facility] Body temperature 2024-01-29 15:10:00 36.28 Yenifer [facility] Body height 2024-01-29 14:26:00 157.5 cm [facility] Body weight 2024-01-29 14:26:00 66.679 kg [facility] BMI 2024-01-29 14:26:00 26.89 kg/m2 [facility] Procedures Procedure Date / Time Performed Performing Clinician Source HEPATIC FUNCTION PANEL (8007 6) (ALB,T.PRO,BILI T,BU/BC,ALT,AST,ALK PHOS) 2024-02-27 22:44:00 Libertad Ferrell [facility] BASIC METABOLIC PANEL (NA, K , CL, CO2, GLUCOSE, BUN, CREATININE, CA) 2024-02-27 22:44:00 Libertad Ferrell [facility] CBC WITH DIFF 2024-02-27 22:44:00 Libertad Ferrell [facility] POCT GLUCOSE (AUTOMATED) 2024-01-30 16:36:00 [facility] POCT GLUCOSE (AUTOMATED) 2024-01-30 16:36:00 [facility] POCT GLUCOSE (AUTOMATED) 2024-01-30 12:48:00 [facility] POCT GLUCOSE (AUTOMATED) 2024-01-30 12:48:00 Bharath Mcclure [facility] MAGNESIUM 2024-01-30 09:51:00 Hamza, [facility] BASIC METABOLIC PANEL (NA, K , CL, CO2, GLUCOSE, BUN, CREATININE, CA) 2024-01-30 09:51:[facility] 2024-01-30 09:51:00 Gerry [facility] MAGNESIUM 2024-01-30 09:51:00 [facility]OLIC PANEL (NA, K , CL, CO2, GLUCOSE, BUN, CREATININE, CA) 2024-01-30 09:51:00 Gerry [facility] CBC WITH DIFF 2024-01-30 09:51:00 Gerry [facility] POCT GLUCOSE (AUTOMATED) 2024-01-29 21:19:00 [facility] POCT GLUCOSE (AUTOMATED) 2024-01-29 21:19:00 [facility] POCT GLUCOSE (AUTOMATED) 2024-01-29 16:32:00 [facility] POCT GLUCOSE (AUTOMATED) 2024-01-29 16:32:00 [facility] EGD (ENDO) 2024-01-29 15:36:02 [facility] EGD (ENDO) 2024-01-29 15:36:02 [facility] ESOPHAGOGASTRODUODENOSCOPY 2024-01-29 14:32:00 Israel Christianson [facility] ESOPHAGOGASTRODUODENOSCOPY 2024-01-29 14:32:00 Israel Christianson [facility] POCT GLUCOSE (AUTOMATED) 2024-01-29 12:55:00 [facility] POCT GLUCOSE (AUTOMATED) 2024-01-29 12:55:00 Yudelka Flores [facility] MAGNESIUM 2024-01-29 09:06:00 Gerry [facility] BASIC METABOLIC PANEL (NA, K , CL, CO2, GLUCOSE, BUN, CREATININE, CA) 2024-01-29 09:06:00 Gerry [facility] CBC WITH DIFF 2024-01-29 09:06:00 Garland Bhandari [facility] PROTHROMBIN TIME / INR 2024-01-29 09:06:00 Gerry [facility] ACTIVATED PARTIAL THRMPLAS KARELY 2024-01-17 3 09:06:00 Gerry [facility] HIV 1/2 AG-AB WITH REFLEX 2024-01-29 09:06:00 Gerry [facility] MAGNESIUM 2024-01-29 09:06:00 Gerry [facility] BASIC METABOLIC PANEL (NA, K , CL, CO2, GLUCOSE, BUN, CREATININE, CA) 2024-01-29 09:06:00 Gerry [facility] CBC WITH DIFF 2024-01-29 09:06:00 Garland Bhandari [facility] PROTHROMBIN TIME / INR 2024-01-29 09:06:00 Gerry [facility] ACTIVATED PARTIAL THRMPLAS KARELY 2024-01-17 3 09:06:00 Gerry [facility] HIV 1/2 AG-AB WITH REFLEX 2024-01-29 09:06:00 Gerry [facility] POCT GLUCOSE (AUTOMATED) 2024-01-29 01:51:00 [facility] POCT GLUCOSE (AUTOMATED) 2024-01-29 01:51:00 [facility] POCT GLUCOSE (AUTOMATED) 2024-01-28 22:18:00 [facility] POCT GLUCOSE (AUTOMATED) 2024-01-28 22:18:00 [facility] VITAMIN B12, LEVEL 2024-01-28 20:43:00 Angela Christine [facility] FOLATE 2024-01-28 20:43:00 Angela Christine [facility] C-REACTIVE PROTEIN 2024-01-28 20:43:00 Angela Christine [facility] SEDIMENTATION RATE 2024-01-28 20:43:00 Angela Christine [facility] HEPATITIS B SURFACE ANTIBODY 2024-01-28 20:43:00 Angela Christine [facility] HEPATITIS B SURFACE ANTIGEN 2024-01-28 20:43:00 Angela Christine [facility] HEPATITIS B CORE ANTIBODY IGM 2024-01-28 20:43:00 Angela Christine [facility] VITAMIN D, 25-OH 2024-01-28 20:43:00 Angela Christine [facility] QUANTIFERON-TB ASSAY 2024-01-28 20:43:00 Angela Christine [facility] ANTI-CENTROMERE B 2024-01-28 20:43:00 Gary Garrett [facility] ANTI-ZOEY-1 2024-01-28 20:43[facility]00 [facility], LEVEL 2024-01-28 20:43:00 Angela Christine [facility] FOLATE 2024-01-28 20:43:00 Angela Christine [facility] C-REACTIVE PROTEIN 2024-01-28 20:43:00 Angela Christine [facility] SEDIMENTATION RATE 2024-01-28 20:43:00 Angela Christine [facility] HEPATITIS B SURFACE ANTIBODY 2024-01-28 20:43:00 Angela Christine [facility] HEPATITIS B SURFACE ANTIGEN 2024-01-28 20:43:00 Angela Christine [facility] HEPATITIS B CORE ANTIBODY IGM 2024-01-28 20:43:00 Angela Christine [facility] VITAMIN D, 25-OH 2024-01-28 20:43:00 Angela Christine [facility] QUANTIFERON-TB ASSAY 2024-01-28 20:43:00 Angela Christine [facility] ANTI-CENTROMERE B 2024-01-28 20:43:00 Gary Garrett [facility] ANTI-ZOEY-1 2024-01-28 20:43:00 [facility] 2024-01-28 17:17:00 [facility] POCT GLUCOSE (AUTOMATED) 2024-01-28 17:17:00 [facility] POCT GLUCOSE (AUTOMATED) 2024-01-28 12:57:00 [facility] POCT GLUCOSE (AUTOMATED) 2024-01-28 12:57:00 [facility] POCT GLUCOSE (AUTOMATED) 2024-01-28 08:45:00 [facility] POCT GLUCOSE (AUTOMATED) 2024-01-28 08:45:00 [facility] MAGNESIUM 2024-01-28 08:22:00 [facility] RHEUMATOID FACTOR 2024-01-28 08:22:00 Gary Garrett [facility] THYROID STIMULATING HORMONE 2024-01-28 08:22:00 [facility] HEPATIC FUNCTION PANEL (8007 6) (ALB,T.PRO,BILI T,BU/BC,ALT,AST,ALK PHOS) 2024-01-28 08:22:00 [facility] BASIC METABOLIC PANEL (NA, K , CL, CO2, GLUCOSE, BUN, CREATININE, CA) 2024-01-28 08:22:00 [facility] IRON PANEL 2024-01-28 08:22:00 [facility] EXTRA TUBE LT. GREEN 2024-01-28 08:22:00 [facility] EXTRA TUBE DK. GREEN 2024-01-28 08:22:00 Bharath Mcclure [facility] MAGNESIUM 2024-01-28 08:22:00 [facility] RHEUMATOID FACTOR 2024-01-28 08:22:00 Gary Garrett [facility] THYROID STIMULATING HORMONE 2024-01-28 08:22:00 [facility] HEPATIC FUNCTION PANEL (8007 6) (ALB,T.PRO,BILI T,BU/BC,ALT,AST,ALK PHOS) 2024-01-28 08:22:00 [facility] BASIC METABOLIC PANEL (NA, K , CL, CO2, GLUCOSE, BUN, CREATININE, CA) 2024-01-28 08:22:00 [facility] IRON PANEL 2024-01-28 08:22:00 [facility] EXTRA TUBE LT. GREEN 2024-01-28 08:22:00 Bharath Mcclure [facility] EXTRA TUBE DK. GREEN 2024-01-28 08:22:00 Bharath Mcclure [facility] POCT GLUCOSE (AUTOMATED) 2024-01-28 07:40:00 [facility] POCT GLUCOSE (AUTOMATED) 2024-01-28 07:40:00 [facility] HB ECG ROUTINE & RHYTHM STRIP 2024-01-28 04:36:14 [facility] HB ECG ROUTINE & RHYTHM STRIP 2024-01-28 04:36:14 [facility] XR ABDOMEN ACUTE SERIES 2024-01-28 03:06:38 Vick [facility] XR ABDOMEN ACUTE SERIES 2024-01-28 03:06:38 [facility] LIPASE 2024-01-28 02:41:00 [facility] FERRITIN SERUM 2024-01-28 02:41:00 [facility] COMP. METABOLIC PANEL (47405) 2024-01-28 02:41:00 [facility] CBC WITH DIFF 2024-01-28 02:41:00 [facility] GLYCOSYLATED HEMOGLOBIN (A1C) 2024-01-28 02:41:00 Garland Bhandari [facility] LIPASE 2024-01-28 02:41:00 [facility] FERRITIN SERUM 2024-01-28 02:41:00 [facility] COMP. METABOLIC PANEL (07910) 2024-01-28 02:41:00 [facility] CBC WITH DIFF 2024-01-28 02:41:00 [facility]ick [facility] GLYCOSYLATED HEMOGLOBIN (A1C) 2024-01-28 02:41:00 [facility] Encounters Start Date/Time End Date/Time Encounter Type Admission Type Attending [facility] Care Department Encounter ID Source 2024-04-17 00:00:00 2024-05-18 18:18:59 Patient Secure Msg Doctor Unassigned, [facility] Doctor Unassigned, [facility] [id number] 350.1.13.10 4.2.7.2.686 [id number] [facility] 2024-03-29 00:00:00 2024-04-01 10:16:11 Refill Mitchel, Lisset [facility] [id number] 350.1.13.10 4.2.7.2.686 [id number] [facility] 2024-02-17 00:00:00 2024-03-23 18:24:53 Patient Secure Msg Doctor Unassigned, [facility] 1.20.114 350.1.13.10 4.2.7.2.686 [id number] [facility] 2024-02-29 00:00:00 2024-02-29 14:56:47 Patient Outreach China Mays 1.20.114 350.1.13.10 4.2.7.2.686 [id number] [facility] 2024-02-27 15:03:00 2024-02-27 20:53:00 Emergency X LIBERTAD FERRELL [facility] ERT [id number] [facility] 2024-02-27 15:03:00 2024-02-27 20:53:00 Emergency Libertad Ferrell [facility] 1.2.114 350.1.13.10 4.2.7.2.686 [id number] [facility] 2024-02-01 00:00:00 2024-02-01 16:08:59 Patient Outreach China Mays [id number] 350.1.13.10 4.2.7.2.686 [id number] [facility] 2024-01-27 21:09:00 2024-01-30 17:21:00 Inpatient X YUDELKA FLORES [facility] [id number] [facility] 2024-01-27 21:09:00 2024-01-30 17:21:00 Hospital Encounter Trevin Hickman, Yudelka Ren, [facility]ath [facility] 1.2840.114 350.1.13.10 4.2.7.2.686 [id number] [facility] 2024-01-29 10:22:00 2024-01-29 11:00:00 Surgery Israel Christianson [facility] [id number] 350.1.13.10 4.2.7.2.686 [id number] [facility] Results Test Description Test Time Test Comments Results Result Co mments Source [facility] (21091) (ALB,T.PRO,BILI T,BU/BC,ALT,AST,ALK PHOS)2024-02-27 23:42:33* Test Item Value Reference Range Interpretation Comme nts TOTAL BILI (test code = 6059333265) 1.1 mg/dL 0.1-1.1 BILI UNCON (test code = 3796330461) 0.6 mg/dL 0.1-1.1 BILI CONJ (test code = 4164193844) 0.0 mg/dL 0.0-0.3 T PROTEIN (test code = 3880885947) 8.5 g/dL 6.3-8.2 H ALBUMIN (test code = 9688740770) 4.7 g/dL 3.5-5.0 ALK PHOS (test code = 4147710434) 106 U/L 34-122 ALTv (test code = 1742-6) 20 U/L 5-35 AST(SGOT) (test code = 6073348387) 24 U/L 13-40 Lab Interpretation (test cod e = 38872-0) Abnormal [facility] (NA, K, CL, CO2, GLUCOSE, BUN, CREATININE, CA)2024-02-27 23:42:32* Test Item Value Reference Range Interpretation Comme nts NA (test code = 9950115091) 138 mmol/L 135-145 K (test code = 0680563895) 4.5 mmol/L 3.5-5.0 CL (test code = 8733417697) 104 mmol/L 98-108 CO2 TOTAL (test code = 3325341560) 26 mmol/L 23-31 AGAP (test code = 0470083358) 8 2-16 BUN (test code = 6975600266) 8 mg/dL 7-23 GLUCOSE (test code = 0220583951) 194 mg/dL 70-110 H CREATININE (test code = 2160-0) 0.42 mg/dL 0.50-1.04 L CALCIUM (test code = 2363945452) 9.7 mg/dL 8.6-10.6 eGFR (test code = 12632-7) 123.1 mL/min/1.73m2 CKD-EPI eGFR (2020). Assuming creatinine has been stable day-to-day for at least three months, the eGFR indicates Category G1 (>= 90 mL/min/1.73 m2) Lab Interpretation (test code = 96983-9) Abnormal [facility] GLUCOSE (AUTOMATED)2024-01-30 16:37:28* Test Item Value Reference Range Interpretation Comme nts POCT GLU (test code = 6575424862) 203 mg/dL 70-110 H Lab Interpretation (test cod e = 39306-6) Abnormal [facility] GLUCOSE (AUTOMATED)2024-01-30 16:37:28* Test Item Value Reference Range Interpretation Comme nts POCT GLU (test code = 2372187446) 203 mg/dL 70-110 H Lab Interpretation (test cod e = 57015-0) Abnormal [facility] GLUCOSE (AUTOMATED)2024-01-30 12:49:37* Test Item Value Reference Range Interpretation Comme nts POCT GLU (test code = 4234828990) 149 mg/dL 70-110 H Lab Interpretation (test cod e = 06019-7) Abnormal [facility] GLUCOSE (AUTOMATED)2024-01-30 12:49:37* Test Item Value Reference Range Interpretation Comme nts POCT GLU (test code = 7635150159) 149 mg/dL 70-110 H Lab Interpretation (test cod e = 26684-3) [facility]:09:43* Test Item Value Reference Range Interpretation Comme nts MAGNESIUM (test code = 2635045395) 1.8 mg/dL 1.7-2.4 Lab Interpretation (test cod e = 38287-2) [facility] 11:09:43* Test Item Value Reference Range Interpretation Comme nts MAGNESIUM (test code = 7256465199) 1.8 mg/dL 1.7-2.4 Lab Interpretation (test cod e = 63724-4) Normal [facility] Metabolic Panel (NA, K, CL, CO2, GLUCOSE, BUN, CREATININE, CA)2024-01-30 11:09:42* Test Item Value Reference Range Interpretation Comme nts NA (test code = 9265356418) 137 mmol/L 135-145 K (test code = 0860236971) 3.9 mmol/L 3.5-5.0 CL (test code = 9052314746) 105 mmol/L 98-108 CO2 TOTAL (test code = 4685556374) 26 mmol/L 23-31 AGAP (test code = 3533548746) 6 2-16 BUN (test code = 6947159018) 6 mg/dL 7-23 L GLUCOSE (test code = 2363376101) 176 mg/dL 70-110 H CREATININE (test code = 2160-0) 0.47 mg/dL 0.50-1.04 L CALCIUM (test code = 2620652458) 9.2 mg/dL 8.6-10.6 eGFR (test code = 58155-8) 119.8 mL/min/1.73m2 CKD-EPI eGFR (2020). Assuming creatinine has been stable day-to-day for at least three months, the eGFR indicates Category G1 (>= 90 mL/min/1.73 m2) Lab Interpretation (test code = 05362-0) Abnormal [facility] Metabolic Panel (NA, K, CL, CO2, GLUCOSE, BUN, CREATININE, CA)2024-01-30 11:09:42* Test Item Value Reference Range Interpretation Comme nts NA (test code = 3451652508) 137 mmol/L 135-145 K (test code = 4838553620) 3.9 mmol/L 3.5-5.0 CL (test code = 6417058843) 105 mmol/L 98-108 CO2 TOTAL (test code = 0994001746) 26 mmol/L 23-31 AGAP (test code = 8669557700) 6 2-16 BUN (test code = 9043322880) 6 mg/dL 7-23 L GLUCOSE (test code = 8561242446) 176 mg/dL 70-110 H CREATININE (test code = 2160-0) 0.47 mg/dL 0.50-1.04 L CALCIUM (test code = 2822906088) 9.2 mg/dL 8.6-10.6 eGFR (test code = 97094-8) 119.8 mL/min/1.73m2 CKD-EPI eGFR (2020). Assuming creatinine has been stable day-to-day for at least three months, the eGFR indicates Category G1 (>= 90 mL/min/1.73 m2) Lab Interpretation (test code = 22458-8) [facility] [id number] 10:14:54* Test Item Value Reference Range Interpretation Comme nts WBC (test code = 6690-2) 7.24 4.30-11.10 RBC (test code = 789-8) 4.18 3.93-5.25 HGB (test code = 718-7) 12.3 g/dL 11.6-15.0 HCT (test code = 4544-3) 37.2 % 35.7-45.2 MCV (test code = 787-2) 89.0 fL 80.6-95.5 MCH (test code = 785-6) 29.4 pg 25.9-32.8 MCHC (test code = 786-4) 33.1 g/dL 31.6-35.1 RDW-SD (test code = 73585-4) 43.1 fL 39.0-49.9 RDW-CV (test code = 788-0) 13.2 % 12.0-15.5 PLT (test code = 777-3) 309 166-358 MPV (test code = 37298-7) 11.2 fL 9.5-12.9 NRBC/100 WBC (test code = 0289437864) 0.0 0.0-10.0 NRBC x10^3 (test code = 9805594571) See_Comment [Automated me ssage] The system which generated this result transmitted reference range: 10*3/?L. The reference range was not used to interpret this result as normal/abnormal. GRAN MAT (NEUT) % (test code = 770-8) 51.1 % IMM GRAN % (test code = 3749008664) 0.10 % LYMPH % (test code = 736-9) 38.3 % MONO % (test code = 5905-5) 8.4 % EOS % (test code = 713-8) 1.5 % BASO % (test code = 706-2) 0.6 % GRAN MAT x10^3(ANC) (test code = 2987061184) 3.70 10*3/uL 1.88-7.09 IMM GRAN x10^3 (test code = 9255626942) 0.00-0.06 LYMPH x10^3 (test code = 731-0) 2.77 10*3/uL 1.32-3.29 MONO x10^3 (test code = 742-7) 0.61 10*3/uL 0.33-0.92 EOS x10^3 (test code = 711-2) 0.11 10*3/uL 0.03-0.39 BASO x10^3 (test code = 704-7) 0.04 10*3/uL 0.01-0.07 [facility] with [id number] 10:14:54* Test Item Value Reference Range Interpretation Comme nts WBC (test code = 6690-2) 7.24 4.30-11.10 RBC (test code = 789-8) 4.18 3.93-5.25 HGB (test code = 718-7) 12.3 g/dL 11.6-15.0 HCT (test code = 4544-3) 37.2 % 35.7-45.2 MCV (test code = 787-2) 89.0 fL 80.6-95.5 MCH (test code = 785-6) 29.4 pg 25.9-32.8 MCHC (test code = 786-4) 33.1 g/dL 31.6-35.1 RDW-SD (test code = 08442-6) 43.1 fL 39.0-49.9 RDW-CV (test code = 788-0) 13.2 % 12.0-15.5 PLT (test code = 777-3) 309 166-358 MPV (test code = 40707-0) 11.2 fL 9.5-12.9 NRBC/100 WBC (test code = 2991159559) 0.0 0.0-10.0 NRBC x10^3 (test code = 2434902441) See_Comment [Automated me ssage] The system which generated this result transmitted reference range: 10*3/?L. The reference range was not used to interpret this result as normal/abnormal. GRAN MAT (NEUT) % (test code = 770-8) 51.1 % IMM GRAN % (test code = 7390213304) 0.10 % LYMPH % (test code = 736-9) 38.3 % MONO % (test code = 5905-5) 8.4 % EOS % (test code = 713-8) 1.5 % BASO % (test code = 706-2) 0.6 % GRAN MAT x10^3(ANC) (test code = 2443543550) 3.70 10*3/uL 1.88-7.09 IMM GRAN x10^3 (test code = 4190217280) 0.00-0.06 LYMPH x10^3 (test code = 731-0) 2.77 10*3/uL 1.32-3.29 MONO x10^3 (test code = 742-7) 0.61 10*3/uL 0.33-0.92 EOS x10^3 (test code = 711-2) 0.11 10*3/uL 0.03-0.39 BASO x10^3 (test code = 704-7) 0.04 10*3/uL 0.01-0.07 [facility] with [id number] 04:44:31* Test Item Value Reference Range Interpretation Comme nts HIV Semi-quantitative (test code = 73881-7) 0.08 Negative ORIN (test code = ORIN) Non-reactive for HIV-1 antigen and HIV-1/HIV-2 antibodies. ?No laboratory evidence of HIV infection. ?Repeat in 2-4 weeks if acute HIV infection is suspected. [facility] Ag-Ab with [id number] 04:44:31* Test Item Value Reference Range Interpretation Comme nts HIV Semi-quantitative (test code = 44614-8) 0.08 Negative ORIN (test code = ORIN) Non-reactive for HIV-1 antigen and HIV-1/HIV-2 antibodies. ?No laboratory evidence of HIV infection. ?Repeat in 2-4 weeks if acute HIV infection is suspected. [facility] GLUCOSE (AUTOMATED)2024-01-29 21:20:22* Test Item Value Reference Range Interpretation Comme nts POCT GLU (test code = 5742106239) 204 mg/dL 70-110 H Lab Interpretation (test cod e = 98743-3) Abnormal [facility] GLUCOSE (AUTOMATED)2024-01-29 21:20:22* Test Item Value Reference Range Interpretation Comme nts POCT GLU (test code = 1170719891) 204 mg/dL 70-110 H Lab Interpretation (test cod e = 03980-3) Abnormal [facility] GLUCOSE (AUTOMATED)2024-01-29 16:33:26* Test Item Value Reference Range Interpretation Comme nts POCT GLU (test code = 1317202361) 128 mg/dL 70-110 H Lab Interpretation (test cod e = 18610-8) Abnormal [facility] GLUCOSE (AUTOMATED)2024-01-29 16:33:26* Test Item Value Reference Range Interpretation Comme nts POCT GLU (test code = 8152934997) 128 mg/dL 70-110 H Lab Interpretation (test cod e = 71053-2) Abnormal [facility] GLUCOSE (AUTOMATED)2024-01-29 12:56:26* Test Item Value Reference Range Interpretation Comme nts POCT GLU (test code = 8885191871) 211 mg/dL 70-110 H Lab Interpretation (test cod e = 08551-2) Abnormal [facility] GLUCOSE (AUTOMATED)2024-01-29 12:56:26* Test Item Value Reference Range Interpretation Comme nts POCT GLU (test code = 9059660485) 211 mg/dL 70-110 H Lab Interpretation (test cod e = 11899-9) Abnormal [facility] Metabolic Panel (NA, K, CL, CO2, GLUCOSE, BUN, CREATININE, CA)2024-01-29 10:14:31* Test Item Value Reference Range Interpretation Comme nts NA (test code = 7587250161) 136 mmol/L 135-145 K (test code = 8607704186) 3.4 mmol/L 3.5-5.0 L CL (test code = 0329088840) 105 mmol/L 98-108 CO2 TOTAL (test code = 2649794814) 26 mmol/L 23-31 AGAP (test code = 6594832844) 5 2-16 BUN (test code = 7941549938) 5 mg/dL 7-23 L GLUCOSE (test code = 3376432508) 202 mg/dL 70-110 H CREATININE (test code = 2160-0) 0.42 mg/dL 0.50-1.04 L CALCIUM (test code = 3884993278) 8.5 mg/dL 8.6-10.6 L eGFR (test code = 89463-1) 123.1 mL/min/1.73m2 CKD-EPI eGFR (2020). Assuming creatinine has been stable day-to-day for at least three months, the eGFR indicates Category G1 (>= 90 mL/min/1.73 m2) Lab Interpretation (test code = 42154-1) [facility]normal [facility] Center[facility]esium2024-05-13 10:14:31* Test Item Value Reference Range Interpretation Comme nts MAGNESIUM (test code = 6212510288) 1.8 mg/dL 1.7-2.4 Lab Interpretation (test cod e = 52127-3) Normal [facility] Metabolic Panel (NA, K, CL, CO2, GLUCOSE, BUN, CREATININE, CA)2024-01-29 10:14:31* Test Item Value Reference Range Interpretation Comme nts NA (test code = 3593000111) 136 mmol/L 135-145 K (test code = 7201511922) 3.4 mmol/L 3.5-5.0 L CL (test code = 2982183593) 105 mmol/L 98-108 CO2 TOTAL (test code = 9039760347) 26 mmol/L 23-31 AGAP (test code = 6592644188) 5 2-16 BUN (test code = 6413988447) 5 mg/dL 7-23 L GLUCOSE (test code = 9626081728) 202 mg/dL 70-110 H CREATININE (test code = 2160-0) 0.42 mg/dL 0.50-1.04 L CALCIUM (test code = 3754637673) 8.5 mg/dL 8.6-10.6 L eGFR (test code = 14268-7) 123.1 mL/min/1.73m2 CKD-EPI eGFR (2020). Assuming creatinine has been stable day-to-day for at least three months, the eGFR indicates Category G1 (>= 90 mL/min/1.73 m2) Lab Interpretation (test code = 84767-7) [facility]normal [facility]2024-05-13 10:14:31* Test Item Value Reference Range Interpretation Comme nts MAGNESIUM (test code = 5398911674) 1.8 mg/dL 1.7-2.4 Lab Interpretation (test cod e = 01513-6) Normal [facility] CenterProthrombin Time / [id number] 09:54:33* Test Item Value Reference Range Interpretation Comme nts PROTIME PATIENT (test code = 5964-2) 12.5 10.1-12.6 INR (test code = 6301-6) 1.1 Normal INR <1.1; Warfarin Therapeutic range 2.0 to 3.0 or 2.5 to 3.5, depending upon the indications. Lab Interpretation (test code = 99475-8) Normal [facility] CenteraPTT2024-05-13 09:54:33* Test Item Value Reference Range Interpretation Comme nts APTT Patient (test code = 3173-2) 32 26-36 Lab Interpretation (test cod e = 25584-0) Normal [facility] CenterProth[facility] / [id number] 09:54:33* Test Item Value Reference Range Interpretation Comme nts PROTIME PATIENT (test code = 5964-2) 12.5 10.1-12.6 INR (test code = 6301-6) 1.1 Normal INR <1.1; Warfarin Therapeutic range 2.0 to 3.0 or 2.5 to 3.5, depending upon the indications. Lab Interpretation (test code = 30690-3) Normal [facility] CenteraPTT2024-05-13 09:54:33* Test Item Value Reference Range Interpretation Comme [facility] APTT Patient (test code = 3173-2) 32 26-36 Lab Interpretation (test cod e = 54492-7) Normal [facility] CenterCBC with [id number] 09:47:12* Test Item Value Reference Range Interpretation Comme [facility] WBC (test code = 6690-2) 7.21 4.30-11.10 RBC (test code = 789-8) 4.05 3.93-5.25 HGB (test code = 718-7) 12.1 g/dL 11.6-15.0 HCT (test code = 4544-3) 36.2 % 35.7-45.2 MCV (test code = 787-2) 89.4 fL 80.6-95.5 MCH (test code = 785-6) 29.9 pg 25.9-32.8 MCHC (test code = 786-4) 33.4 g/dL 31.6-35.1 RDW-SD (test code = 14669-0) 43.9 fL 39.0-49.9 RDW-CV (test code = 788-0) 13.4 % 12.0-15.5 PLT (test code = 777-3) 305 166-358 MPV (test code = 43027-9) 11.3 fL 9.5-12.9 NRBC/100 WBC (test code = 6121168564) 0.0 0.0-10.0 NRBC x10^3 (test code = 5591304443) See_Comment [Automated messa ge] The system which generated this result transmitted reference range: 10*3/?L. The reference range was not used to interpret this result as normal/abnormal. GRAN MAT (NEUT) % (test code = 770-8) 38.3 % IMM GRAN % (test code = 2947773427) 0.10 % LYMPH % (test code = 736-9) 49.9 % MONO % (test code = 5905-5) 9.3 % EOS % (test code = 713-8) 1.8 % BASO % (test code = 706-2) 0.6 % GRAN MAT x10^3(ANC) (test code = 6526518540) 2.76 10*3/uL 1.88-7.09 IMM GRAN x10^3 (test code = 2175955070) 0.00-0.06 LYMPH x10^3 (test code = 731-0) 3.60 10*3/uL 1.32-3.29 H MONO x10^3 (test code = 742-7) 0.67 10*3/uL 0.33-0.92 EOS x10^3 (test code = 711-2) 0.13 10*3/uL 0.03-0.39 BASO x10^3 (test code = 704-7) 0.04 10*3/uL 0.01-0.07 Lab Interpretation (test code = 56049-8) Abnormal [facility] with [id number] 09:47:12* Test Item Value Reference Range Interpretation Comme nts WBC (test code = 6690-2) 7.21 4.30-11.10 RBC (test code = 789-8) 4.05 3.93-5.25 HGB (test code = 718-7) 12.1 g/dL 11.6-15.0 HCT (test code = 4544-3) 36.2 % 35.7-45.2 MCV (test code = 787-2) 89.4 fL 80.6-95.5 MCH (test code = 785-6) 29.9 pg 25.9-32.8 MCHC (test code = 786-4) 33.4 g/dL 31.6-35.1 RDW-SD (test code = 89467-2) 43.9 fL 39.0-49.9 RDW-CV (test code = 788-0) 13.4 % 12.0-15.5 PLT (test code = 777-3) 305 166-358 MPV (test code = 10346-1) 11.3 fL 9.5-12.9 NRBC/100 WBC (test code = 7892738785) 0.0 0.0-10.0 NRBC x10^3 (test code = 0619424139) See_Comment [Automated messa ge] The system which generated this result transmitted reference range: 10*3/?L. The reference range was not used to interpret this result as normal/abnormal. GRAN MAT (NEUT) % (test code = 770-8) 38.3 % IMM GRAN % (test code = 4608766134) 0.10 % LYMPH % (test code = 736-9) 49.9 % MONO % (test code = 5905-5) 9.3 % EOS % (test code = 713-8) 1.8 % BASO % (test code = 706-2) 0.6 % GRAN MAT x10^3(ANC) (test code = 0083979954) 2.76 10*3/uL 1.88-7.09 IMM GRAN x10^3 (test code = 4369914593) 0.00-0.06 LYMPH x10^3 (test code = 731-0) 3.60 10*3/uL 1.32-3.29 H MONO x10^3 (test code = 742-7) 0.67 10*3/uL 0.33-0.92 EOS x10^3 (test code = 711-2) 0.13 10*3/uL 0.03-0.39 BASO x10^3 (test code = 704-7) 0.04 10*3/uL 0.01-0.07 Lab Interpretation (test code = 16967-4) Abnormal [facility] GLUCOSE (AUTOMATED)2024-01-29 01:53:42* Test Item Value Reference Range Interpretation Comme nts POCT GLU (test code = 8948688200) 173 mg/dL 70-110 H Lab Interpretation (test cod e = 54974-2) Abnormal [facility] GLUCOSE (AUTOMATED)2024-01-29 01:53:42* Test Item Value Reference Range Interpretation Comme nts POCT GLU (test code = 3415500610) 173 mg/dL 70-110 H Lab Interpretation (test cod e = 38052-2) Abnormal [facility] GLUCOSE (AUTOMATED)2024-01-28 22:19:28* Test Item Value Reference Range Interpretation Comme nts POCT GLU (test code = 2845606657) 259 mg/dL 70-110 H Lab Interpretation (test cod e = 82548-9) Abnormal [facility] GLUCOSE (AUTOMATED)2024-01-28 22:19:28* Test Item Value Reference Range Interpretation Comme nts POCT GLU (test code = 7936373870) 259 mg/dL 70-110 H Lab Interpretation (test cod e = 06527-2) Abnormal [facility] GLUCOSE (AUTOMATED)2024-01-28 17:18:51* Test Item Value Reference Range Interpretation Comme nts POCT GLU (test code = 4674994364) 110 mg/dL 70-110 Lab Interpretation (test cod e = 97862-6) Normal [facility] GLUCOSE (AUTOMATED)2024-01-28 17:18:51* Test Item Value Reference Range Interpretation Comme nts POCT GLU (test code = 8387084942) 110 mg/dL 70-110 Lab Interpretation (test cod e = 76402-0) Normal [facility] ABDOMEN ACUTE [id number] 14:24:59 EXAM: XR ABDOMEN ACUTE SERIES HISTORY: 43 years-old Female with pain . COMPARISON: None. TECHNIQUE:Multiple views of the chest and abdomen. FINDINGS: Cardiomediastinal: The cardiomediastinal silhouette is unremarkable. Lungs and pleura: The lungs are clear. No focal consolidation,pneumothorax, or pleural effusion is seen. No radiopaque stones or masses are seen. The bowel gas pattern is nonobstructive. Moderate to large stool burden andfecal impaction. No intra- abdominal free air is visualized. The visualized bones and soft tissues are within normal limits.[facility] ABDOMEN ACUTE SERIES 2024-01-28 14:24:59EXAM: XR ABDOMEN ACUTE SERIES HISTORY: 43 years-old Female with pain . COMPARISON: None. TECHNIQUE:Multiple views of the chest and abdomen. FINDINGS: Cardiomediastinal: The cardiomediastinal silhouette is unremarkable. Lungs and pleura: The lungs are clear. No focal consolidation,pneumothorax, or p leural effusion is seen. No radiopaque stones or masses are seen. The bowel gas pattern is nonobstructive. Moderate to large stool burden andfecal impaction. No intra-abdominal free air is visualized. The visualized bones and soft tissues are within normal limits.[facility] GLUCOSE (AUTOMATED)2024-01-28 12:58:16* Test Item Value Reference Range Interpretation Comme nts POCT GLU (test code = 9221942920) 113 mg/dL 70-110 H Lab Interpretation (test cod e = 39715-2) Abnormal [facility] GLUCOSE (AUTOMATED)2024-01-28 12:58:16* Test Item Value Reference Range Interpretation Comme nts POCT GLU (test code = 8496461833) 113 mg/dL 70-110 H Lab Interpretation (test cod e = 73467-1) Abnormal [facility] GLUCOSE (AUTOMATED)2024-01-28 08:47:16* Test Item Value Reference Range Interpretation Comme nts POCT GLU (test code = 1825413557) 89 mg/dL 70-110 Lab Interpretation (test cod e = 31519-1) Normal [facility] GLUCOSE (AUTOMATED)2024-01-28 08:47:16* Test Item Value Reference Range Interpretation Comme nts POCT GLU (test code = 4357650937) 89 mg/dL 70-110 Lab Interpretation (test cod e = 91991-3) Normal [facility] GLUCOSE (AUTOMATED)2024-01-28 07:44:46* Test Item Value Reference Range Interpretation Comme nts POCT GLU (test code = 0751125320) 68 mg/dL 70-110 L Lab Interpretation (test cod e = 55916-5) Abnormal [facility] GLUCOSE (AUTOMATED)2024-01-28 07:44:46* Test Item Value Reference Range Interpretation Comme nts POCT GLU (test code = 2834893878) 68 mg/dL 70-110 L Lab Interpretation (test cod e = 47759-5) Abnormal [facility] Consult Notes Date/Time Note Provider Source 2024-01-30 14:56:32 Associated Order(s): CONSULT FOOD AND NUTRITION MEDICAL NUTRITION THERAPY ASSESSMENT NOTE: Enteral Nutrition Recommendations Patient seen on 01/28 - Recommendations for PO intake within previous note. If patient tolerable of regular diet: Minced and Moist (Chopped) 5 - recommend continue PO intake. If tube placed, EN recommendations below. Estimated Energy Needs Calories: 6233-7454 kcal/day; 20-25 kcals/kg Current Weight Protein: 80-93 g/day, 1.2-1.4 g/kg Current Weight Fluid: 1600+ ml/day (1 ml/kcal) or per MD/Medical Team Enteral Nutrition Intervention Recommendations Recommend Jevity 1.2 Raghav start at 10 mL/hr, advancing 10 mL q4H, to goal rate of 75 mL/hr (Est infusion rate 22hr/day). - Provides: 1650 mL formula, 1980 kcal (100% est needs), 91 g protein (100% est needs), 1332 mL water - FWF per provider. Pt seen on 01/28 for NRS. Please refer to note for estimated energy needs. Vale Wilder MS, RD, LD Clinical Dietitian [phone] [facility] [employer] 2024-01-28 07:12:48 Associated Order(s): CONSULT [facility] Gastroenterology & Hepatology Consult Note Requesting Physician: Bharath Mcclure MD Service: JUAN ANTONIO- Medicine Reason for Consultation: History of Crohns, dysphagia Date of Service: 01/28/2024 History of Present Illness: Yael LIPSCOMB is a 43 year old female with PMHx of Crohn's Disease (previously on humira), esophageal stricture, IDDM, HTN who presented on 01/27/2024 with complaints of dysphagia. She reports dysphagia started 1 year ago, was happening 1-2x per month however it has increased in frequency over the last 1-2 months and is now having dysphagia 1-2 times per day. Previously only with solids and now occurring with liquids. She will feel it get stuck and sometimes have to vomit it back up. Has never had impaction requiring endoscopic removal. Feels like it gets stuck between neck and upper chest. Has also had odynophagia over the last 2 months. Sometimes will cough and choke a couple seconds after swallowing. EGD 1 year ago in [place] and had an esophageal stricture which was not treated at fátima time. No prior caustic ingestion, radiation, neck surgery, hematemesis, weight loss. Has GERD symptoms since 2014 and is controlled omeprazole once daily. Diagnosed with crohns in 2014 (was following with Dr. Carreno in [place]) at which time she was having diarrhea, weight loss, blood in stool. Had colonoscopy at that time but was not completed due to inflammation. Had pillcam and thinks it showed disease in the small bowel. Was started on humira in 2014 and was on this until 1 year ago. Was switched to imuran at that time (50 mg BID) by doctor in [place] which she is still currently taking. Also reports joint pain which worsened after coming off humira. She reports that while on humira she was having about 2 formed stool with no abdominal pain. Last colonoscopy 1 year ago and there was no inflammation at that time. Denies diarrhea but endorses constipation. Has BM about once daily, a little hard. No blood in the stool. No recent weight loss, fevers, chills. Intermittent abdominal pain a few times per week. In the ED, patient afebrile and hemodynamically stable. Workup notable for WBC 13, hgb 13.6, Tbili 2.1 (unconjugated), normal AST/ALT. Moderate-large stool burden on KUB. Past Medical History: Past Medical History: Diagnosis Date Crohn's disease Diabetes Esophageal stricture Essential (primary) hypertension Past Surgical History: History reviewed. No pertinent surgical history. Family History: No family history on file. Allergies: No Known Allergies Medications: Reviewed Social History: Social History Socioeconomic History Marital status: Single Spouse name: Not on file Number of children: Not on file Years of education: Not on file Highest education level: Not on file Occupational History Not on file Tobacco Use Smoking status: Never Smokeless tobacco: Not on file Substance and Sexual Activity Alcohol use: Not on file Drug use: Not on file Sexual activity: Not on file Other Topics Concern Not on file Social History Narrative Not on file Social Determinants of Health Financial Resource Strain: Not on file Food Insecurity: Not on file Transportation Needs: Not on file Physical Activity: Not on file Stress: Not on file Social Connections: Not on file Intimate Partner Violence: Not on file Housing Stability: Not on file Objective: Physical Exam: BP (!) 162/82 | Pulse 80 | Temp 36.2 ?C (97.2 ?F) | Resp 17 | Ht 1.575 m (5' 2") | Wt 66.7 kg (147 lb) | SpO2 98% | BMI 26.89 kg/m? General: In NAD, well appearing HEENT: No conjunctival pallor. No oral thrush or ulcers. CV: warm, well perfused, no LE swelling Resp: No increased WOB, breathing comfortably on RA Abd: soft, non-tender, non-distended. No masses. No rebound tenderness or guarding. Neuro: answering questions appropriately. Skin: No rashes Labs: Recent Labs 01/27/242140 HGB 13.6 MCV 92.4 WBC 13.03* PLT 347 Recent Labs 01/27/24214001/28/24 0322 ALB 4.3 4.0 TPRO 7.8 7.3 BILIT 2.1* 1.9* ALT 22 20 AST 23 21 ALKPHOS 106 88 Recent Labs 01/27/24214001/28/242 NA 142 145 K 3.4* 3.6 CL 106 110* TCO2 29 24 BUN 14 15 CREAT 0.44* 0.44* GLU 79 88 CA 9.4 9.1 Imaging: KUB 01/26: IMPRESSION No acute intra-abdominal abnormality. Moderate to large stool burden. Prior Endoscopy: EGD: Had EGD about 1 year ago in [place] and reportedly had esophageal stricture Colonoscopy: Reports normal colonoscopy in [place] Impression/Recommendations: Yael LIPSCOMB is a 43 year old female with PMHx as listed above who is currently admitted for dysphagia for which GI is consulted. #Esophageal Dysphagia Patient with 1 year history of dysphagia to solids which has progressively worsened with increased frequency and now has dysphagia to both solids and liquids as well as inability to tolerate p.o. over the last week. Reports EGD 1 year ago in [place] which revealed esophageal stricture which was not intervened on at that time. Etiology could be structural 2/2 esophageal stricture, ring, webs, less likely malignancy vs motility disorder. Stricture could possibly be due to underlying Crohn's but unclear at this point. Will further evaluate with EGD with possible dilation. - Plan for EGD tomorrow - NPO after midnight - Discontinue UGI series as barium can interfere with visualization during EGD - Start IV pantoprazole 40 mg BID - Will follow up [employer] recommendations #History of Crohn's Disease Background: - Type of IBD: Crohns - Date of Diagnosis: 2014 - Disease Behavior: Unclear - Severity: Unknown - Extent: Colonic, possible small bowel +/- upper GI disease - Past medications: humira (2014 - 2022) - Current medications: imuran (since 02/2023) - Biologic Drug Levels: n/a - Extraintestinal manifestations: joint pain - Associated Surgeries: none - Imaging: none - Last Colonoscopy: one year ago, reportedly normal (done in [place]) Patient with history of Crohn's disease diagnosed in 2014, previously on Humira but switched to Imuran about 1 year ago. Gastrointestinal symptoms have been relatively well controlled with normal bowel movements however has had worsening of her joint pain which could be extraintestinal manifestation of her IBD. Also question whether her possible esophageal stricture is secondary to her Crohn's disease. Will need to further evaluate for her Crohn's activity with CT enterography +/- colonoscopy however at this time unable to tolerate oral contrast or bowel prep. In addition, she is self-pay and therefore recommend social work consult in order to help with funding as she will likely need to be reinitiated on a biologic as an outpatient. Recommend: - Check fecal calprotectin, CRP/ESR, daily CBC/CMP, stool culture - Check TPMT, quatiferon gold, HBsAb, HBsAg, HBcAb - Check adalimumab levels and neutralizing antibodies ([facility] #[id number]) - Check vitamin D, vit B12, folate - Continue azathioprine 100 mg daily - Consult social media analyst for assistance with funding in anticipation of biologic initiation as outpatient - Will consider CT enterography +/- colonoscopy once she is able to tolerate bowel prep - Ensure DVT prophylaxis Patient was seen and discussed with Dr. Christianson. GI will continue to follow. Please call with any questions. Eber Flores MD Gastroenterology and Hepatology PGY-4 Associated attestation - Israel Christianson MD - 01/29/2024 8:19 AM CDT I personally interviewed/examined the patient on 01/28/[address] Flores's resident/fellow note as written . I actively participated in the decision-making process. Please see the resident's note for additional details. [facility] - Health History and Physical Notes Date/Time Note Provider Source 2024-01-29 07:27:13 Endoscopy H & P Age: [age] year old Sex: female ASA Class: III Procedure: EGD Indication: dysphagia Yael LIPSCOMB is a 43 year old female with PMHx of Crohn's Disease (previously on humira), esophageal stricture, GERD, IDDM, HTN who presented on 01/27/2024 with complaints of dysphagia to both solid and liquids. Anticoagulant use: none Fhx of GI cancer: none Prior endoscopy: EGD 1 year ago in [place] and had an esophageal stricture which was not treated at that time Recent Labs 01/29/24 0406 PTINR 1.1 Recent Labs 01/29/24 0406 HGB 12.1 Recent Labs 01/29/24 0406 MCV 89.4 Recent Labs 01/29/24 0406 PLT 305 Histories: Past Medical History: Diagnosis Date Crohn's disease Diabetes Esophageal stricture Essential (primary) hypertension No family history on file. History reviewed. No pertinent surgical history. Current Facility-Administered Medications Medication Dose Route Frequency Last Rate Last Admin KCL (KLOR-CON M20) tablet 40 mEq 40 mEq Oral Q2H amLODIPine (NORVASC) tablet 10 mg 10 mg Oral DAILY dextrose 50 % in water (D50W) injection 25 mL 25 mL Slow IV Push PRN enoxaparin (LOVENOX) injection 40 mg 40 mg Subcutaneous DAILY glucagon (GLUCAGEN DIAGNOSTIC KIT) injection 1 mg 1 mg Intramuscular PRN Sliding Scale Insulin - Lispro (HumaLOG) Subcutaneous TID MEALS+HS No Known Allergies Social History Socioeconomic History Marital status: Single Tobacco Use Smoking status: Never Physical Exam: Mental Status: alert, oriented x3 Abdomen: bowel sounds present Mass: not present Tenderness: no Impression and Plan: Yael LIPSCOMB is a 43 year old female with PMH as above who presents for dysphagia. Will proceed with EGD. Benefits, risks, alternatives, and likelihood of achieving patient's goals of care discussed. Risks discussed including but not limited to aspiration, infection, bleeding, injury to the GI tract or surrounding vessels/structures, perforation, missed polyps/lesions, failure to obtain a diagnosis, failure to complete the procedure, cardiovascular complications such as NC, stroke, arrhythmia, and . Informed consent obtained/verified. Education provided to the patient and family about the procedure. Patient was seen and discussed with attending Dr. Sammy BARKSDALE DO PGY-5 Gastroenterology and Hepatology Contact Information Available on [facility] Associated attestation - Israel Christianson MD - 01/29/2024 10:41 AM CDT I personally interviewed/examined the patient on 01/29/[address] Barksdale's resident/fellow note as written . I actively participated in the decision-making process. Please see the resident's note for additional details. [facility] 2024-01-28 00:04:15 JUAN ANTONIO Ma Admit H&P PCP: PATIENT DOES NOT HAVE A PCP Date of Service: 01/28/2024 CHIEF COMPLAINT: Dysphagia HISTORY OF PRESENT ILLNESS Yael LIPSCOMB is a 43 year old female with a PMH of Crohn s Disease (previously on Humira) c/b esophageal stricture, IDDM, and HTN who presents for dysphagia. Patient presents with approximately a year long duration of difficulty swallowing solid foods noting the sensation that food is "stuck" in her esophagus while eating. Symptoms were previously occurring only intermittently, approximately 1-2 times monthly prompting her to undergo an EGD in her [place] approximately 1 year ago which showed the presence of an esophageal stricture. Patient reports that a colonoscopy was also done at this time which was normal. For the stricture that was discovered, patient denies that any treatment was offered at that time. Patient states that over the last month, she has had increasing episodes difficulty swallowing solids occurring once to twice daily; she reports that she was able to tolerate liquids during this time. On Monday (01/25), she states that she ate beef and felt the sensation that it became stuck in her esophagus. She then tried to eat chicken and noted that this to felt like it was stuck. She she also reported that she was unable to tolerate liquids at this point. In the day that followed, she attempted to drink Ensure but stated that she was unable to keep this down, promptly regurgitating it. Because of this, she decided to seek medical attention. Crohn's disease managed by specialists in [facility]. Patient states that she was previously managed on subcutaneous Humira injections up until 2 years ago. She then states that she was switched to "oral Humira" (possibly RINVOQ?) in February 2023, which she reports taking twice a day. Obtains this medication from [place]. In [facility] ED, VS: Afebrile, heart rate 82, respiratory rate 16, BP 125/61, 100% on room air Notable Labs: WBC 13.03 with left shift, hemoglobin 13.6, normal eosinophils, potassium 3.4, total bilirubin 2.1, normal liver enzymes and lipase Img: Preliminary report of x-ray abdomen showed no acute abnormality but was notable for moderate to large stool burden. Interventions: 500 cc bolus of normal saline Past medical history: has a past medical history of Crohn's disease, Diabetes, Esophageal stricture, and Essential (primary) hypertension. Past surgical history: has no past surgical history on file. Social history: reports that she has never smoked. She does not have any smokeless tobacco history on file. Family history: family history is not on file. Allergies: No Known Allergies MEDICATIONS Prior to Admission medications Not on File REVIEW OF SYSTEMS (-)=Negative,(+)=Positive General: negative Skin: negative HEENT: negative Neck: (+) difficulty swallowing Heme: negative Resp: negative Cardio: negative GI: (+) vomiting, (+) constipation : negative Endo: negative Neuro: negative Back: negative TEOFILO: negative Psych: negative PHYSICAL EXAMINATION Vitals: 01/27/24 2106 01/27/24 2234 01/28/24 0000 01/28/24 0157 BP: (!) 152/78 125/61 126/67 (!) 162/82 Pulse: 84 82 75 80 Resp: 16 16 16 17 Temp: 37 ?C (98.6 ?F) 36.8 ?C (98.3 ?F) 36.2 ?C (97.2 ?F) TempSrc: Oral SpO2: 100% 100% 96% 98% Weight: 66.7 kg (147 lb) Height: 1.575 m (5' 2") General: patient alert and oriented x 4, and in no acute distress Eyes: PERRL and EOMI Neck: supple; no LAD Cardiovascular: Heart regular, rate, rhythm, no murmurs; no edema Respiratory: clear to auscultation bilaterally, no respiratory distress; no stridor Abdomen: abdomen soft, non-tender, non-distended, +BS Skin: intact and warm, dry Neuro: power grossly intact all over, no focal deficits Psych: cooperative and mood/affect normal LABS - reviewed pertinent labs as below: Recent Results (from the past 24 hour(s)) CBC WITH DIFF Collection Time: 01/27/24 9:41 PM Result Value Ref Range WBC 13.03 (H) 4.30 - 11.10 10*3/?L RBC 4.47 3.93 - 5.25 10*6/?L HGB 13.6 11.6 - 15.0 g/dL HCT 41.3 35.7 - 45.2 % MCV 92.4 80.6 - 95.5 fL MCH 30.4 25.9 - 32.8 pg MCHC 32.9 31.6 - 35.1 g/dL RDW-SD 46.7 39.0 - 49.9 fL RDW-CV 13.7 12.0 - 15.5 % PLT 347 166 - 358 10*3/?L MPV 12.1 9.5 - 12.9 fL NRBC/100 WBC 0.0 0.0 - 10.0 /100 WBCs NRBC x10 3 <0.01 10*3/?L GRAN MAT (NEUT) % 73.9 % IMM GRAN % 0.20 % LYMPH % 18.5 % MONO % 6.5 % EOS % 0.4 % BASO % 0.5 % GRAN MAT x10 3 (ANC) 9.63 (H) 1.88 - 7.09 10*3/uL IMM GRAN x10 3 0.03 0.00 - 0.06 10*3/uL LYMPH x10 3 2.41 1.32 - 3.29 10*3/uL MONO x10 3 0.85 0.33 - 0.92 10*3/uL EOS x10 3 0.05 0.03 - 0.39 10*3/uL BASO x10 3 0.06 0.01 - 0.07 10*3/uL COMP. METABOLIC PANEL (74001) Collection Time: 01/27/24 9:41 PM Result Value Ref Range NA 142 135 - 145 mmol/L K 3.4 (L) 3.5 - 5.0 mmol/L CL 106 98 - 108 mmol/L CO2 TOTAL 29 23 - 31 mmol/L AGAP 7 2 - 16 BUN 14 7 - 23 mg/dL GLUCOSE 79 70 - 110 mg/dL CREATININE 0.44 (L) 0.50 - 1.04 mg/dL TOTAL BILI 2.1 (H) 0.1 - 1.1 mg/dL CALCIUM 9.4 8.6 - 10.6 mg/dL T PROTEIN 7.8 6.3 - 8.2 g/dL ALBUMIN 4.3 3.5 - 5.0 g/dL ALK PHOS 106 34 - 122 U/L ALTv 22 5 - 35 U/L AST(SGOT) 23 13 - 40 U/L eGFR 121.7 mL/min/1.73m2 LIPASE Collection Time: 01/27/24 9:41 PM Result Value Ref Range LIPASE 31 0 - 220 U/L POCT GLUCOSE (AUTOMATED) Collection Time: 01/28/24 2:40 AM Result Value Ref Range POCT GLU 68 (L) 70 - 110 mg/dL IMAGING - reviewed, pertinent results as below: Hospital Encounter on 01/27/24 XR ABDOMEN ACUTE SERIES Narrative EXAM: XR ABDOMEN ACUTE SERIES HISTORY: 43 years-old Female with pain . COMPARISON: None. TECHNIQUE: Multiple views of the chest and abdomen. FINDINGS: Cardiomediastinal: The cardiomediastinal silhouette is unremarkable. Lungs and pleura: The lungs are clear. No focal consolidation, pneumothorax, or pleural effusion is seen. No radiopaque stones or masses are seen. The bowel gas pattern is nonobstructive. Moderate to large stool burden and fecal impaction. No intra-abdominal free air is visualized. The visualized bones and soft tissues are within normal limits. Impression No acute intra-abdominal abnormality. Moderate to large stool burden. Preliminary Report Dictated by Resident: Gracy Brody CHART REVIEW: pertinent information as below: N/A ASSESSMENT/PLAN Yael LIPSCOMB is a 43 year old female with PMH as listed above, admitted to the hospital with: Esophageal Dysphagia - POA Crohn's Disease Hx of Esophageal Stricture IDDM Constipation Patient presents with acute worsening of esophageal dysphagia, initially only to solids (for ~1 year, intermittent episodes) and now to both solids and liquids for the last 2 days. Unable to tolerate anything PO at current time. Patient reports history of EGD ~02/2023 in [place] showing an esophageal stricture but no further treatment or workup was reported to be done at that time. She reports being on an oral Crohn's disease medication that she takes twice a day (reporting that it is Humira, though she was not aware that Humira is not available in PO form; perhaps oral RINVOQ?). Nature of her dysphagia is very likely due to presence of esophageal stricture in the setting of Crohn's disease. Neuromuscular causes less likely at current time. - strict NPO - Consult for GI placed; call in AM BETH - labs: CBC, CMP, Mg, iron studies and ferritin, TFT - AUTOMOBILE RELOCATION ENGINEER consult and barium swallow study - Maintenance IVF with D5W - suppository once - Consider additional labs: ROCKY, ?-centromere, ?-OIL DISTRIBUTOR, ?-Zoey, HIV, AChR-Ab - SSI; resume weight-based insulin once pt tolerates PO diet HTN - holding home med - IV labetalol or hydralazine if >180/110 DIET: NPO DVT ppx- not indicated; sierra < 4 Bowel reg: suppository of Dulcolax GI ppx: Not indicated Therapy: Not indicated PAIN: Not indicated Code Status: FULL Garland Bhandari, 01/28/2024 12:04 AM Principal Problem: Esophageal dysphagia [employer] software was used to generate this document, please excuse minor grammatical and spelling errors. Associated attestation - Bharath Mcclure MD - 01/28/2024 6:52 AM CDT I personally examined the patient on 01/28/[address] Bhandari's resident note as written. I actively participated in the decision-making process. Please see the resident's note for additional details. Bharath Mcclure MD, PING Internal Medicine [facility]
--- NOTE | 2024-10-17 19:56 | EDPHYS ---
Physician Documentation [facility] Name: Yael Lipscomb Age: 44 yrs Sex: Female : 1980 Arrival Date: 10/17/2024 Time: 17:44 Bed 8 Private MD: ED Physician Papo Mei HPI: 10/17 20:27 This 44 yrs old Female presents to ER via Ambulatory with complaints of rt Difficulty Swallowing, Low Blood Sugar. 20:27 Patient in January had an esophageal dilation procedure performed, she states that was rt difficult. This was done at [facility] in [place]. She states that over the past several months, she has worsening difficulty with swallowing, now to the point where she has difficulty in tolerating liquids. Denies any overt pain. Denies other acute complaints at this time, symptoms are moderate in severity, no other aggravating or alleviating factors.. ALIGNING CHECKER: 18:02 LMP 09/18/2018, unknown jb4 Historical: - Allergies: 18:02 No Known Allergies; jb4 - PMHx: 18:02 Crohn's; Diabetes - IDDM; Hypertension; jb4 - PSHx: 18:02 None; jb4 - Immunization history:: Adult Immunizations not up to date. - Infectious Disease History:: Denies. - Social history:: Smoking status: Patient denies any tobacco usage or history of. - Family history:: not pertinent. ROS: 20:27 Constitutional: Negative for fever, chills, and weight loss, Cardiovascular: Negative rt for chest pain, palpitations, and edema, Respiratory: Negative for shortness of breath, cough, wheezing, and pleuritic chest pain, MS/Extremity: Negative for injury and deformity, Skin: Negative for injury, rash, and discoloration, Neuro: Negative for headache, weakness, numbness, tingling, and seizure, 20:27 Abdomen/GI: Positive for Dysphagia, negative for abdominal pain, Exam: 20:27 Constitutional: This is a well developed, well nourished patient who is awake, alert, rt and in no acute distress. Head/Face: Normocephalic, atraumatic. Chest/axilla: Normal chest wall appearance and motion. Nontender with no deformity. No lesions are appreciated. Cardiovascular: Regular rate and rhythm with a normal S1 and S2. No gallops, murmurs, or rubs. Normal PMI, no JVD. No pulse deficits. Respiratory: Lungs have equal breath sounds bilaterally, clear to auscultation and percussion. No rales, rhonchi or wheezes noted. No increased work of breathing, no retractions or nasal flaring. Skin: Warm, dry with normal turgor. Normal color with no rashes, no lesions, and no evidence of cellulitis. MS/ Extremity: Pulses equal, no cyanosis. Neurovascular intact. Full, normal range of motion. Neuro: Awake and alert, GCS 15, oriented to person, place, time, and situation. Cranial nerves II-XII grossly intact. Motor strength 5/5 in all extremities. Sensory grossly intact. Cerebellar exam normal. Normal gait. 20:27 Abdomen/GI: Mild tenderness to the epigastrium without rebound, guarding, distention, Vital Signs: 18:00 BP 174 / 90; Pulse 79; Resp 16; Temp 98.7(O); Pulse Ox 100% on R/A; Weight 66.68 kg jb4 (R); Height 5 ft. 2 in. (R); Pain 2/10; 19:55 BP 163 / 70; Pulse 73; Resp 17; Temp 98.7; Pulse Ox 96% ; Pain 2/10; bm8 18:00 Body Mass Index 26.89 (66.68 kg, 157.48 cm) jb4 18:00 Pain Scale: Adult jb4 19:55 Pain Scale: Adult bm8 Yuri Coma Score: 19:55 Eye Response: spontaneous(4). Motor Response: obeys commands(6). Verbal Response: bm8 oriented(5). Total: 15. MDM: 19:25 Medical Screening Exam initiated rt 20:27 Differential diagnosis: Dysphagia, stricture. Data reviewed: vital signs, nurses notes. rt Care significantly affected by the following chronic conditions: Hypertension. ED course: Patient presents to the ED with dysphagia, likely due to stricture requiring dilation. We do not have any GI docs on-call, did speak with Dr. Cordova who recommended obtaining an esophageal to see if there is a complete obstruction. I did inform the patient that we do not have any gastroenterology on-call but that I was in discussions with Dr. Cordova. Patient states that she wishes to follow-up with gastroenterology in [facility] as an outpatient., I did give her information for the local clinics. Return precautions were discussed.. 10/17 18:11 Order name: Glucose, Ancillary Testing; Complete Time: 19:00 EDMS Administered Medications: No medications were administered Disposition Summary: 10/17/24 19:55 Discharge Ordered Notes: Location: Home rt Problem: chronic rt Symptoms: are unchanged rt Condition: Stable rt Diagnosis - Dysphagia rt Followup: rt - With: Jay Jay Jang MD - When: 1 - 2 days - Reason: Followup: rt - With: Bang Johnson MD - When: 1 - 2 days - Reason: Followup: rt - With: Claudio De Luna MD - When: 1 - 2 days - Reason: Discharge Instructions: - Discharge Summary Sheet rt - Dysphagia rt Forms: - Medication Reconciliation Form rt - Antibiotic Education rt - Prescription Opioid Use rt - Patient Portal Instructions rt - Leadership Thank You Letter rt Signatures: Moris Blackwood RN RN jb4 Papo Mei MD MD rt
--- NOTE | 2024-10-17 19:56 | ER ---
Nurse's Notes [facility] Name: Yael Lipscomb Age: 44 yrs Sex: Female : 1980 Arrival Date: 10/17/2024 Time: 17:44 Bed 8 Private MD: Diagnosis: Dysphagia Presentation: 10/17 18:00 Chief complaint: Patient states: I have not been able to eat. Any time I try to eat it jb4 gets stuck and I vomit. This has happened before in January and they did an endoscopy to open my esophagus. I was told I would need it again due to it no opening enough. Coronavirus screen: At this time, the client does not indicate any symptoms associated with coronavirus-19. Ebola Screen: No symptoms or risks identified at this time. Initial Sepsis Screen: Does the patient meet any 2 criteria? No. Patient's initial sepsis screen is negative. Does the patient have a suspected source of infection? No. Patient's initial sepsis screen is negative. Risk Assessment: Do you want to hurt yourself or someone else? Patient reports no desire to harm self or others. Onset of symptoms was October 17, 2024. Transition of care: patient was not received from another setting of care. 18:00 Method Of Arrival: Ambulatory jb4 18:00 Acuity: MATT 3 jb4 Triage Assessment: 18:02 General: Appears in no apparent distress. comfortable, Behavior is calm, cooperative, jb4 appropriate for age. Pain: Complains of pain in chest Pain does not radiate. Pain currently is 2 out of 10 on a pain scale. Aggravated by vomiting. Neuro: Level of Consciousness is awake, alert, obeys commands, Oriented to person, place, time, situation. Cardiovascular: Patient's skin is warm and dry. Respiratory: Airway is patent Respiratory effort is even, unlabored, Respiratory pattern is regular, symmetrical. GI: Reports Inability to swallow foods or liquids. Vomiting upon attempt to eat or drink. Derm: Skin is intact, Skin is pink, warm \T\ dry. Musculoskeletal: Circulation, motion, and sensation intact. Range of motion: intact in all extremities. MERCHANDISING SPECIALIST: 18:02 LMP 09/18/2018, unknown jb4 Historical: - Allergies: 18:02 No Known Allergies; jb4 - PMHx: 18:02 Crohn's; Diabetes - IDDM; Hypertension; jb4 - PSHx: 18:02 None; jb4 - Immunization history:: Adult Immunizations not up to date. - Infectious Disease History:: Denies. - Social history:: Smoking status: Patient denies any tobacco usage or history of. - Family history:: not pertinent. Screenin:55 [facility] ED Fall Risk Assessment (Adult) History of falling in the last 3 months, bm8 including since admission No falls in past 3 months (0 pts) Confusion or Disorientation No (0 pts) Intoxicated or Sedated No (0 pts) Impaired Gait No (0 pts) Mobility Assist Device Used No (0 pt) Altered Elimination No (0 pt) Score/Fall Risk Level 0 - 2 = Low Risk Oriented to surroundings, Maintained a safe environment, Educated pt \T\ family on fall prevention, incl call for assistance when getting out of bed, Assessed \T\ reinforced patient's understanding of fall precautions, Hourly rounding (assess needs \T\ fall precautionary measures) done, Used ambulatory aids as needed (educated on \T\ assisted with), Used gait belt as appropriate. Abuse screen: Denies threats or abuse. Nutritional screening: No deficits noted. Tuberculosis screening: No symptoms or risk factors identified. Assessment: 19:55 Reassessment: Patient appears in no apparent distress at this time. Patient and/or bm8 family updated on plan of care and expected duration. Pain level reassessed. Patient is alert, oriented x 3, equal unlabored respirations, skin warm/dry/pink. Patient states symptoms have not improved. GI: Reports nausea, pt reports that she had to get her esophagus widened and it doesn't feel like she can swallow food. she has appt with GI tomorrow and has decided she wants to wait to see him until that happens. MD notified, discharge papers to follow. Vital Signs: 18:00 BP 174 / 90; Pulse 79; Resp 16; Temp 98.7(O); Pulse Ox 100% on R/A; Weight 66.68 kg jb4 (R); Height 5 ft. 2 in. (R); Pain 2/10; 19:55 BP 163 / 70; Pulse 73; Resp 17; Temp 98.7; Pulse Ox 96% ; Pain 2/10; bm8 18:00 Body Mass Index 26.89 (66.68 kg, 157.48 cm) jb4 18:00 Pain Scale: Adult jb4 19:55 Pain Scale: Adult bm8 Yuri Coma Score: 19:55 Eye Response: spontaneous(4). Motor Response: obeys commands(6). Verbal Response: bm8 oriented(5). Total: 15. ED Course: 17:46 Patient arrived in ED. im 17:53 Papo Mei MD is Attending Physician. rt 18:01 Triage completed. jb4 18:02 Arm band placed on right wrist. jb4 19:54 Sen Huynh, RN is Primary Nurse. bm8 19:54 Jay Jay Jang MD is Referral Physician. rt 19:55 Bang Johnson MD is Referral Physician. rt 19:55 Claudio De Luna MD is Referral Physician. rt 19:55 Patient has correct armband on for positive identification. Bed in low position. Call bm8 light in reach. Provided Education on: post er care. Client placed on continuous cardiac and pulse oximetry monitoring. NIBP monitoring applied. Pulse ox on. NIBP on. Door closed. Verbal reassurance given. 19:55 No provider procedures requiring assistance completed. Patient did not have IV access bm8 during this emergency room visit. Administered Medications: No medications were administered Medication: 19:55 VIS not applicable for this client. bm8 Outcome: 19:55 Discharge ordered by . rt 19:55 Discharged to home ambulatory, with family, bm8 19:55 Condition: stable 19:55 Discharge instructions given to patient, family, Instructed on discharge instructions, follow up and referral plans. safety practices, Demonstrated understanding of instructions, follow-up care, medications, 20:04 Patient left the ED. bm8 Signatures: Moris Blackwood, RN RN jb4 Papo Mei MD MD rt Cathleen España Sen Huynh, RN RN bm8
[2024-10-18 03:46] VITALS: TEMP 98.7
[2024-10-18 03:47] VITALS: BP 163/70; O2SAT 96
== END 2024-10-17 20:04 | disposition home or self-care (01) ==
LOC: ER 17:44
DX: R13.10 Dysphagia, unspecified (principal); R10.816 Epigastric abdominal tenderness; E11.9 Type 2 diabetes mellitus without complications; I10 Essential (primary) hypertension
CPT/HCPCS: 82947; 99283